=== PATIENT | female | born 1935 | race Caucasian/White ===

== ENCOUNTER 2020-05-18 12:54 | Outpatient (REF) | payer MEDICARE, MEDICAID, SELFPAY ==
--- NOTE | 2020-05-18 13:01 | MM_ITS ---
EXAMINATION: BONE DENSITOMETRY CLINICAL INDICATION: Post menopausal. COMPARISON: None (current study represents initial baseline exam). TECHNIQUE: Using a [employer] DXA System (software version: 13.1) manufactured by [employer], dual-energy x-ray absorptiometry was performed of the lumbar spine and left hip. The images are of good technical quality. Summary results are attached. FINDINGS: AP SPINE L1-L2 (excluding L3 and L4): The data of L1-L4 has been changed to exclude the L3 and L4 vertebral bodies, because levocurvature and degenerative changes at these levels may cause overestimation of lumbar spine density. BMD 0.822 g/cm2, Z-score -0.4, T-score -2.9, osteoporosis. LEFT FEMUR, NECK: BMD 0.630 g/cm2, Z-score -0.2, T-score -2.9, osteoporosis. LEFT FEMUR, TOTAL: BMD 0.655 g/cm2, Z-score -0.2, T-score -2.8, osteoporosis. IDENTIFIED RISK FACTORS: History of adult fracture. Height loss. Low body weight. Secondary osteoporosis (early menopause). HISTORY OF FRACTURE: Humerus. MEDICATIONS: None listed. MM/XR DEXA axial skeleton IMPRESSION: 1. DIAGNOSIS: Osteoporosis based on the lowest T-score value of -2.9 in the lumbar spine and femoral neck applying World Health Organization criteria. 2. 10-YEAR FRACTURE RISK PREDICTION, FRAX: Major osteoporotic fracture (clinical spine, forearm, hip or shoulder) 29.3%. Hip fracture 11.3%. 3. Treatment Recommendations: NOF guidelines recommend consideration for treatment in postmenopausal women and men age 50 and older presenting with the following: -A hip or vertebral (clinical or morphometric) fracture. -T-score less than or equal to -2.5 at the femoral neck or spine after appropriate evaluation to exclude secondary causes. -Low bone mass at the hip or spine and a 10-year fracture probability by FRAX of greater than or equal to 3% for hip fracture or greater than or equal to 20% for major osteoporotic fracture based on the [place] adapted WHO algorithm. 4. Other Recommendations: All treatment decisions require clinical judgment and consideration of individual patient factors, including patient preferences, comorbidities, previous drug use, risk factors not captured in the FRAX model (e.g. frailty, falls, vitamin D deficiency, increased bone turnover, interval significant decline in bone density) and possible under or overestimation of fracture risk by FRAX. Additional medical evaluation for secondary cause of low bone mineral density may be appropriate. FUTURE SCAN RECOMMENDATION: People with diagnosed cases of osteoporosis or at high risk for fracture should have regular bone mineral density tests. For patients eligible for Medicare, routine testing is allowed once every 2 years. The testing frequency can be increased to one year for patients who have rapidly progressing disease, those who are receiving or discontinuing medical therapy to restore bone mass, or have additional risk factors.
--- NOTE | 2020-05-18 13:01 | MM_ITS ---
EXAMINATION: MM SCREENING DIGITAL BREAST TOMOSYNTHESIS, BILATERAL CLINICAL INFORMATION: Screening. Asymptomatic. The lifetime risk of breast cancer based on the Tyrer-Cuzick Model is 1%. COMPARISON: Mammography: 11/01/2016, 09/25/2015, 03/28/2019, 08/31/2014, 08/24/2014 TECHNIQUE: Digital breast tomosynthesis is performed in both the craniocaudal and mediolateral oblique views along with computer-aided detection (CAD). Synthesized 2D images are generated from the tomosynthesis. Additional left MLO view is provided. FINDINGS: There are scattered areas of fibroglandular density (ACR BI-RADS breast composition Category b). There are no significant masses, abnormal calcifications, or other abnormalities. No developing density. No significant changes. MM/MM tomosynthesis screening BI IMPRESSION: No mammographic evidence of malignancy. ASSESSMENT: BI-RADS 1: Negative RECOMMENDATION: Routine annual mammography screening. This patient's information was entered into a reminder system with a target due date for their next mammogram.
== END 2020-05-18 12:55 | disposition home or self-care (01) ==
LOC: HO.MAMMO 12:54
PROVIDERS: PCP Internal Medicine; Visit Provider Internal Medicine
DX: N95.9 Unspecified menopausal and perimenopausal disorder (principal); Z12.31 Encounter for screening mammogram for malignant neoplasm of breast
CPT/HCPCS: 77063; 77067; 77080

== ENCOUNTER 2020-06-01 08:38 | Outpatient (REF) | payer MEDICARE, MEDICAID, SELFPAY ==
[2020-06-01 10:45] LABS: Vitamin D 25-OH Total 13.9 ng/mL (>30)
== END 2020-06-01 08:39 | disposition home or self-care (01) ==
LOC: HO.LAB 08:38
PROVIDERS: Visit Provider Internal Medicine
DX: E55.9 Vitamin D deficiency, unspecified (principal)
CPT/HCPCS: 82306

== ENCOUNTER → 2020-06-07 13:39 | Outpatient (BNVA) | payer MEDICARE, MEDICAID, SELFPAY | PROVIDERS: Visit Provider Student in an Organized Health Care Education/Training Program | DX: M19.042 Primary osteoarthritis, left hand (principal) | CPT/HCPCS: 20600; 20605; 99211 ==

== ENCOUNTER 2020-06-21 09:22 | Outpatient (REF) | payer MEDICARE, MEDICAID, SELFPAY ==
[2020-06-21 10:10] LABS: Hematocrit 35.4 % (37-47); Hemoglobin 11.1 g/dl (12.0-16.0); Mean Corpuscular HGB Conc 31.4 g/dl (31.0-35.0); Mean Corpuscular Hemoglobin 27.1 pg (27.0-33.0); Mean Corpuscular Volume 86.3 fL (80-98); Mean Platelet Volume 10.4 fL (9.4-12.3); Platelet Count 247 X10*3/uL (160-400); Red Cell Distribution Width 13.8 % (11.0-16.0); White Blood Count 7.4 X10*3/uL (4.8-10.8)
[2020-06-21 10:20] LABS: Anion Gap 10 (12-20); Blood Urea Nitrogen 18 mg/dL (9-16); Calcium 8.5 mg/dL (8.4-10.2); Carbon Dioxide 24 mmol/L (22-29); Chloride 110 mmol/L (96-108); Estimated Glomerular Filt Rate > 60; Glucose Random 126 mg/dL (60-115); Potassium 4.5 mmol/l (3.3-5.1); Sodium 139 mmol/L (135-145)
== END 2020-06-21 09:23 | disposition home or self-care (01) ==
LOC: HO.LAB 09:22
PROVIDERS: Visit Provider Internal Medicine
DX: R60.0 Localized edema (principal)
CPT/HCPCS: 36415; 80048; 85027

== ENCOUNTER → 2020-10-06 13:14 | Outpatient (BNVA) | payer MEDICARE, MEDICAID, SELFPAY | PROVIDERS: PCP Internal Medicine; Visit Provider Student in an Organized Health Care Education/Training Program | DX: M19.042 Primary osteoarthritis, left hand (principal) | CPT/HCPCS: 20600; 99212 ==

== ENCOUNTER → 2021-02-01 14:46 | Outpatient (BNVA) | payer MEDICARE, MEDICAID, SELFPAY | PROVIDERS: PCP Internal Medicine; Visit Provider Student in an Organized Health Care Education/Training Program | DX: M19.042 Primary osteoarthritis, left hand (principal) | CPT/HCPCS: 20600; 99212 ==

== ENCOUNTER 2021-02-05 08:07 | Outpatient (REF) | payer MEDICARE, MEDICAID, SELFPAY ==
[2021-02-05 09:44] LABS: MANUAL DIFF FLAG NO
[2021-02-05 09:56] LABS: Basophils Percent Auto 0.2 % (0-2); Eosinophils Absolute Auto 0.2 X10*3/uL (0.0-0.4); Eosinophils Percent Auto 2.1 % (0-4); Hematocrit 32.5 % (37-47); Hemoglobin 10.8 g/dl (12.0-16.0); Imm Gran Abs Auto 0.06 X10*3/uL (0.00-0.03); Imm Gran Pct Auto 0.6 % (0.0-0.4); Lymphocytes Absolute Auto 1.7 X10*3/uL (1.2-4.9); Lymphocytes Percent Auto 16.7 % (20-40); Mean Corpuscular HGB Conc 33.2 g/dl (31.0-35.0); Mean Corpuscular Hemoglobin 28.2 pg (27.0-33.0); Mean Corpuscular Volume 84.9 fL (80-98); Mean Platelet Volume 10.1 fL (9.4-12.3); Monocytes Absolute Auto 0.9 X10*3/uL (0.1-1.2); Monocytes Percent Auto 8.6 % (2-11); Neutrophils Absolute Auto 7.5 X10*3/uL (2.0-8.3); Neutrophils Percent Auto 71.8 % (45-73); Platelet Count 251 X10*3/uL (160-400); Red Blood Count 3.83 X10*6/uL (4.20-5.50); Red Cell Distribution Width 15.2 % (11.0-16.0); White Blood Count 10.4 X10*3/uL (4.8-10.8)
[2021-02-05 10:09] LABS: Anion Gap 12 (12-20); Blood Urea Nitrogen 20 mg/dL (9-16); Carbon Dioxide 19 mmol/L (22-29); Chloride 106 mmol/L (96-108); Cholesterol 137 mg/dL; Estimated Glomerular Filt Rate > 60; Glucose Fasting 101 mg/dL (60-99); HDL Cholesterol 53 mg/dL; LDL Cholesterol Calculated 72 mg/dl; Potassium 4.7 mmol/L (3.3-5.1); Sodium 132 mmol/L (135-145); Triglycerides 63 mg/dL
== END 2021-02-05 08:08 | disposition home or self-care (01) ==
LOC: HO.LAB 08:07
PROVIDERS: PCP Internal Medicine; Visit Provider Internal Medicine
DX: E55.9 Vitamin D deficiency, unspecified (principal); R53.83 Other fatigue; E78.00 Pure hypercholesterolemia, unspecified
CPT/HCPCS: 36415; 80051; 80061; 82306; 82565; 82947; 84520; 85025

== ENCOUNTER 2021-05-10 08:14 | Outpatient (REF) | payer MEDICARE, MEDICAID, SELFPAY ==
[2021-05-10 08:35] LABS: MANUAL DIFF FLAG NO
[2021-05-10 09:14] LABS: Basophils Percent Auto 0.5 % (0-2); Eosinophils Absolute Auto 0.3 X10*3/uL (0.0-0.4); Eosinophils Percent Auto 3.9 % (0-4); Hematocrit 32.6 % (37.0-47.0); Hemoglobin 10.5 g/dl (12.0-16.0); Imm Gran Abs Auto 0.02 X10*3/uL (0.00-0.03); Imm Gran Pct Auto 0.3 % (0.0-0.4); Lymphocytes Absolute Auto 1.6 X10*3/uL (1.2-4.9); Mean Corpuscular HGB Conc 32.2 g/dl (31.0-35.0); Mean Corpuscular Hemoglobin 28.9 pg (27.0-33.0); Mean Corpuscular Volume 89.8 fL (80.0-98.0); Mean Platelet Volume 9.9 fL (9.4-12.3); Monocytes Absolute Auto 0.7 X10*3/uL (0.1-1.2); Monocytes Percent Auto 9.5 % (2-11); Neutrophils Absolute Auto 5.1 x10*3/uL (2.0-8.3); Neutrophils Percent Auto 64.8 % (45-73); Platelet Count 288 X10*3/uL (160-400); Red Blood Count 3.63 X10*6/uL (4.20-5.50); Red Cell Distribution Width 14.6 % (11.0-16.0); White Blood Count 7.8 X10*3/uL (4.8-10.8)
[2021-05-10 09:40] LABS: Anion Gap 9 (12-20); Blood Urea Nitrogen 14 mg/dL (9-16); Calcium 8.9 mg/dL (8.4-10.2); Carbon Dioxide 26 mmol/L (22-29); Chloride 108 mmol/L (96-108); Estimated Glomerular Filt Rate > 60; Glucose Random 103 mg/dL (60-115); Potassium 4.8 mmol/L (3.3-5.1); Sodium 138 mmol/L (135-145)
== END 2021-05-10 08:15 | disposition home or self-care (01) ==
LOC: HO.LAB 08:14
PROVIDERS: PCP Internal Medicine; Visit Provider Internal Medicine
DX: R53.83 Other fatigue (principal); D64.9 Anemia, unspecified; I10 Essential (primary) hypertension
CPT/HCPCS: 36415; 80048; 85025

== ENCOUNTER → 2021-06-04 09:51 | Outpatient (BNVA) | payer MEDICARE, MEDICAID, SELFPAY | PROVIDERS: PCP Internal Medicine; Visit Provider Orthopaedic Surgery | DX: M18.12 Unilateral primary osteoarthritis of first carpometacarpal joint, left hand (principal) | CPT/HCPCS: 20600; 99202; J1040 ==

== ENCOUNTER 2021-06-18 13:33 | Outpatient (REF) | payer MEDICARE, MEDICAID, SELFPAY ==
--- NOTE | ~2021-06-18 | MM_ITS ---
EXAMINATION: MM SCREENING DIGITAL BREAST TOMOSYNTHESIS, BILATERAL CLINICAL INFORMATION: Screening. Asymptomatic. COMPARISON: Mammography: 05/18/2020, 11/01/2016, 09/25/2015 TECHNIQUE: Digital breast tomosynthesis is performed in both the craniocaudal and mediolateral oblique views along with computer-aided detection (CAD). Synthesized 2D images are generated from the tomosynthesis. FINDINGS: There are scattered areas of fibroglandular density (ACR BI-RADS breast composition Category b). There are no significant masses, abnormal calcifications, or other abnormalities. Parenchymal pattern is similar to prior exams. MM/MM tomosynthesis screening BI IMPRESSION: No mammographic evidence of malignancy. ASSESSMENT: BI-RADS 1: Negative RECOMMENDATION: Routine annual mammography screening. This patient's information was entered into a reminder system with a target due date for their next mammogram.
== END 2021-06-18 13:34 | disposition home or self-care (01) ==
LOC: HO.MAMMO 13:33
PROVIDERS: PCP Internal Medicine; Visit Provider Internal Medicine
DX: Z12.31 Encounter for screening mammogram for malignant neoplasm of breast (principal)
CPT/HCPCS: 77063; 77067

== ENCOUNTER 2021-06-20 08:23 | Outpatient (REF) | payer MEDICARE, MEDICAID, SELFPAY ==
[2021-06-20 09:16] LABS: COVID-19 Test Negative (Negative); IDNOW Serial# 16C4AD1C
== END 2021-06-20 08:24 | disposition home or self-care (01) ==
LOC: HO.LAB 08:23
PROVIDERS: PCP Internal Medicine; Visit Provider Internal Medicine
DX: Z20.822 Contact with and (suspected) exposure to COVID-19 (principal)
CPT/HCPCS: 36415; 87635; C9803

== ENCOUNTER 2021-07-12 08:00 | Outpatient (REF) | payer MEDICARE, MEDICAID, SELFPAY ==
[2021-07-12 08:16] LABS: MANUAL DIFF FLAG NO
[2021-07-12 08:42] LABS: Basophils Percent Auto 0.6 % (0-2); Eosinophils Absolute Auto 0.2 X10*3/uL (0.0-0.4); Eosinophils Percent Auto 3.2 % (0-4); Hematocrit 33.2 % (37.0-47.0); Hemoglobin 10.5 g/dl (12.0-16.0); Imm Gran Abs Auto 0.02 X10*3/uL (0.00-0.03); Imm Gran Pct Auto 0.3 % (0.0-0.4); Lymphocytes Absolute Auto 1.7 X10*3/uL (1.2-4.9); Lymphocytes Percent Auto 25.2 % (20-40); Mean Corpuscular HGB Conc 31.6 g/dl (31.0-35.0); Mean Corpuscular Volume 88.5 fL (80.0-98.0); Mean Platelet Volume 10.1 fL (9.4-12.3); Monocytes Absolute Auto 0.8 X10*3/uL (0.1-1.2); Neutrophils Absolute Auto 3.9 x10*3/uL (2.0-8.3); Neutrophils Percent Auto 58.7 % (45-73); Platelet Count 294 X10*3/uL (160-400); Red Blood Count 3.75 X10*6/uL (4.20-5.50); Red Cell Distribution Width 14.2 % (11.0-16.0); White Blood Count 6.6 X10*3/uL (4.8-10.8)
[2021-07-12 09:13] LABS: Anion Gap 10 (12-20); Blood Urea Nitrogen 22 mg/dL (9-16); Calcium 9.2 mg/dL (8.4-10.2); Carbon Dioxide 24 mmol/L (22-29); Chloride 111 mmol/L (96-108); Estimated Glomerular Filt Rate > 60; Glucose Random 97 mg/dL (60-115); Potassium 4.8 mmol/L (3.3-5.1); Sodium 140 mmol/L (135-145)
== END 2021-07-12 08:01 | disposition home or self-care (01) ==
LOC: HO.LAB 08:00
PROVIDERS: PCP Internal Medicine; Visit Provider Internal Medicine
DX: R53.83 Other fatigue (principal)
CPT/HCPCS: 36415; 80048; 85025

== ENCOUNTER 2021-10-12 08:07 | Outpatient (REF) | payer MEDICARE, MEDICAID, SELFPAY ==
[2021-10-12 08:36] LABS: MANUAL DIFF FLAG NO
[2021-10-12 08:56] LABS: Basophils Percent Auto 0.4 % (0-2); Eosinophils Absolute Auto 0.2 X10*3/uL (0.0-0.4); Eosinophils Percent Auto 2.4 % (0-4); Hematocrit 33.8 % (37.0-47.0); Hemoglobin 10.6 g/dl (12.0-16.0); Imm Gran Abs Auto 0.03 X10*3/uL (0.00-0.03); Imm Gran Pct Auto 0.3 % (0.0-0.4); Lymphocytes Absolute Auto 1.9 X10*3/uL (1.2-4.9); Lymphocytes Percent Auto 18.5 % (20-40); Mean Corpuscular HGB Conc 31.4 g/dl (31.0-35.0); Mean Corpuscular Hemoglobin 27.6 pg (27.0-33.0); Mean Platelet Volume 9.5 fL (9.4-12.3); Monocytes Absolute Auto 0.8 X10*3/uL (0.1-1.2); Monocytes Percent Auto 7.6 % (2-11); Neutrophils Absolute Auto 7.1 x10*3/uL (2.0-8.3); Neutrophils Percent Auto 70.8 % (45-73); Platelet Count 257 X10*3/uL (160-400); Red Blood Count 3.84 X10*6/uL (4.20-5.50); Red Cell Distribution Width 15.2 % (11.0-16.0)
[2021-10-12 09:25] LABS: Anion Gap 12 (12-20); Blood Urea Nitrogen 15 mg/dL (9-16); Carbon Dioxide 20 mmol/L (22-29); Chloride 107 mmol/L (96-108); Estimated Glomerular Filt Rate > 60; Glucose Random 103 mg/dL (60-115); Potassium 5.2 mmol/L (3.3-5.1); Sodium 134 mmol/L (135-145)
== END 2021-10-12 08:08 | disposition home or self-care (01) ==
LOC: HO.LAB 08:07
PROVIDERS: PCP Internal Medicine; Visit Provider Internal Medicine
DX: R53.83 Other fatigue (principal); N18.9 Chronic kidney disease, unspecified; E78.5 Hyperlipidemia, unspecified
CPT/HCPCS: 36415; 80048; 85025

== ENCOUNTER → 2021-11-07 12:42 | Outpatient (BNVA) | payer MEDICARE, MEDICAID, SELFPAY | PROVIDERS: PCP Internal Medicine; Visit Provider Physician Assistant | DX: M18.12 Unilateral primary osteoarthritis of first carpometacarpal joint, left hand (principal) | CPT/HCPCS: 20600; 99212; J1020 ==

== ENCOUNTER 2022-02-11 08:08 | Outpatient (REF) | payer MEDICARE, MEDICAID, SELFPAY ==
[2022-02-11 08:21] LABS: MANUAL DIFF FLAG NO
[2022-02-11 08:35] LABS: Basophils Absolute Auto 0.1 X10*3/uL (0.0-0.2); Eosinophils Absolute Auto 0.3 X10*3/uL (0.0-0.4); Eosinophils Percent Auto 4.3 % (0-4); Hematocrit 33.1 % (37.0-47.0); Hemoglobin 10.7 g/dl (12.0-16.0); Imm Gran Abs Auto 0.02 X10*3/uL (0.00-0.03); Imm Gran Pct Auto 0.3 % (0.0-0.4); Lymphocytes Absolute Auto 1.7 X10*3/uL (1.2-4.9); Lymphocytes Percent Auto 23.8 % (20-40); Mean Corpuscular HGB Conc 32.3 g/dl (31.0-35.0); Mean Corpuscular Hemoglobin 28.1 pg (27.0-33.0); Mean Corpuscular Volume 86.9 fL (80.0-98.0); Mean Platelet Volume 9.6 fL (9.4-12.3); Monocytes Absolute Auto 0.7 X10*3/uL (0.1-1.2); Monocytes Percent Auto 9.1 % (2-11); Neutrophils Absolute Auto 4.5 x10*3/uL (2.0-8.3); Neutrophils Percent Auto 61.5 % (45-73); Platelet Count 268 X10*3/uL (160-400); Red Blood Count 3.81 X10*6/uL (4.20-5.50); Red Cell Distribution Width 14.7 % (11.0-16.0); White Blood Count 7.2 X10*3/uL (4.8-10.8)
[2022-02-11 09:06] LABS: Alanine Aminotransferase 15 U/L (0-31); Alkaline Phosphatase 70 U/L (39-117); Anion Gap 13 (12-20); Aspartate Amino Transferase 15 U/L (5-31); Bilirubin Total 0.5 mg/dL (0.0-1.0); Blood Urea Nitrogen 18 mg/dL (9-16); Calcium 8.8 mg/dL (8.4-10.2); Carbon Dioxide 22 mmol/L (22-29); Chloride 106 mmol/L (96-108); Cholesterol 128 mg/dL; Estimated Glomerular Filt Rate > 60; Glucose Fasting 108 mg/dL (60-99); HDL Cholesterol 51 mg/dL; LDL Cholesterol Calculated 65 mg/dl; Potassium 5.2 mmol/L (3.3-5.1); Sodium 136 mmol/L (135-145); Total Protein 6.1 g/dL (6.5-8.0); Triglycerides 61 mg/dL
[2022-02-14 15:10] LABS: Iron 62 mcg/dL (30-160); Percent Iron Saturation 17 % (15-50); Total Iron Binding Capacity 360 mcg/dL (228-428); Unsaturated Iron Binding 298 ug/dL
== END 2022-02-11 08:09 | disposition home or self-care (01) ==
LOC: HO.LAB 08:08
PROVIDERS: PCP Internal Medicine; Visit Provider Internal Medicine
DX: D64.9 Anemia, unspecified (principal); R53.83 Other fatigue
CPT/HCPCS: 36415; 80053; 80061; 83540; 85025

== ENCOUNTER → 2022-02-13 12:34 | Outpatient (BNVA) | payer MEDICARE, MEDICAID, SELFPAY | PROVIDERS: PCP Internal Medicine; Visit Provider Physician Assistant | DX: M18.12 Unilateral primary osteoarthritis of first carpometacarpal joint, left hand (principal) | CPT/HCPCS: 20600; 99212; J1020 ==

== ENCOUNTER → 2022-06-17 13:22 | Outpatient (BNVA) | payer MEDICARE, MEDICAID, SELFPAY | PROVIDERS: PCP Internal Medicine; Visit Provider Physician Assistant | DX: M18.12 Unilateral primary osteoarthritis of first carpometacarpal joint, left hand (principal) | CPT/HCPCS: 20600; 99212; J1020 ==

== ENCOUNTER 2022-10-05 21:06 | Emergency (ER) | payer MEDICARE, MEDICAID, SELFPAY ==
[2022-10-05] VITALS (10 sets, daily range): BP systolic 83–117; BP diastolic 35–67; PULSE 50–64; RESP 12–14; TEMP 36.3–37; O2SAT 97–99; BMI 18.8
--- NOTE | 2022-10-05 | ECG_ITS ---
Test Reason : SYNCOPE Blood Pressure : / mmHG Vent. Rate : 049 BPM Atrial Rate : 049 BPM P-R Int : 188 ms QRS Dur : 094 ms QT Int : 492 ms P-R-T Axes : 066 072 070 degrees QTc Int : 444 ms Sinus bradycardia Otherwise normal ECG No previous ECGs available Referred By: Generic ED Physician Electronically Signed By:Dimitrios Matamoros
--- NOTE | ~2022-10-05 | XR_ITS ---
EXAMINATION: XR CHEST CLINICAL INFORMATION: Cough COMPARISON: None available. TECHNIQUE: Frontal view of the chest was obtained. FINDINGS: Normal symmetric lung volumes. No parenchymal consolidation. Bibasilar subsegmental atelectasis. No pleural effusion. No pneumothorax. Cardiomediastinal silhouette and pulmonary vascularity are within normal limits. No acute osseous abnormalities. Median sternotomy. XR/XR chest 1V IMPRESSION: No focal consolidation.
[2022-10-05] MEDS: 0.9 % Sodium Chloride 1,000 ML 999 ML IV (21:52)
[2022-10-05 22:33] LABS: Basophils Percent Auto 0.3 % (0-2); Eosinophils Absolute Auto 0.1 X10*3/uL (0.0-0.4); Eosinophils Percent Auto 1.5 % (0-4); Hematocrit 27.3 % (37.0-47.0); Hemoglobin 8.8 g/dl (12.0-16.0); Imm Gran Abs Auto 0.03 X10*3/uL (0.00-0.03); Imm Gran Pct Auto 0.3 % (0.0-0.4); Lymphocytes Absolute Auto 1.5 X10*3/uL (1.2-4.9); Lymphocytes Percent Auto 16.5 % (20-40); MANUAL DIFF FLAG NO; Mean Corpuscular HGB Conc 32.2 g/dl (31.0-35.0); Mean Corpuscular Volume 86.9 fL (80.0-98.0); Mean Platelet Volume 9.7 fL (9.4-12.3); Monocytes Absolute Auto 0.8 X10*3/uL (0.1-1.2); Monocytes Percent Auto 8.2 % (2-11); Neutrophils Absolute Auto 6.7 x10*3/uL (2.0-8.3); Neutrophils Percent Auto 73.2 % (45-73); Platelet Count 232 X10*3/uL (160-400); Red Blood Count 3.14 X10*6/uL (4.20-5.50); White Blood Count 9.2 X10*3/uL (4.8-10.8)
--- NOTE | 2022-10-05 22:33 | ED_ITS ---
HPI - Syncope General Chief Complaint: Syncope Stated Complaint: SYNCOPE Time Seen by Provider: 10/05/22 21:42 Source: patient and other Mode of arrival: EMS History of Present Illness HPI narrative: 87-year-old female who was at [employer] singing, and is brought in by EMS after she reports that she has had some diarrhea this morning with poor oral intake and then while at [employer] noticed that her hands were trembling, she was in a standing position at this time, she denies any cool/clammy feeling does report a flushing sensation as well as visual changes but denies any shortness of breath/palpitations. Patient denies any head strike and denies any anticoagulation. Related Data Home Medications Medication Instructions Recorded Confirmed acetaminophen 500 mg tablet 500 mg PO Q6H PRN 06/07/20 06/07/20 (Tylenol Extra Strength) aspirin 81 mg tablet,delayed 81 mg PO DAILY 06/07/20 06/07/20 release (Adult Low Dose Aspirin) atorvastatin 80 mg tablet 80 mg PO DAILY 06/07/20 06/07/20 carvedilol 12.5 mg tablet 12.5 mg PO BID 06/07/20 06/07/20 cholecalciferol (vitamin D3) 1,250 1,250 mcg PO QWEEK 06/07/20 06/07/20 mcg (50,000 unit) capsule gabapentin 300 mg capsule 300 mg PO TID 06/07/20 06/07/20 ibandronate 150 mg tablet mg PO .once a month 06/07/20 06/07/20 lisinopril 20 mg tablet 20 mg PO DAILY 06/07/20 06/07/20 omeprazole 20 mg capsule,delayed 20 mg PO DAILY 06/07/20 06/07/20 release oxybutynin chloride 10 mg 10 mg PO DAILY 06/07/20 06/07/20 tablet,extended release 24 hr amlodipine 10 mg tablet 10 mg PO DAILY 11/07/21 gabapentin 100 mg capsule 100 mg PO BID 11/07/21 Allergies Allergy/AdvReac Type Severity Reaction Status Date / Time cephalexin Allergy Intermediate rash Verified 10/05/22 21:40 alendronate sodium AdvReac Intermediate DIARRHEA Verified 10/05/22 21:40 [From Fosamax] From Augmentin Allergy Severe FACE, LIPS Uncoded 06/17/22 13:30 SWELL Review of Systems Review of Systems: Pertinent positives and negatives as stated in [facility] Past Medical History Source: nursing notes reviewed Medical History Primary osteoarthritis, left hand Social History Social History Alcohol intake: current Alcohol intake frequency: holidays/special occasions only Alcohol type: wine Patient Tobacco Use Status: Never used Tobacco Advance Directives: No Advance Directives Information Provided: No Physical Exam Vital Signs: Vital Signs: Last Vital Signs Temp 98.6 F 10/05/22 23:24 Pulse 65 10/06/22 01:35 Resp 12 10/05/22 23:24 BP 112/46 L 10/06/22 01:35 Pulse Ox 98 10/05/22 23:24 O2 Del Method Room Air 10/05/22 23:24 BMI result Body Mass Index 18.8 VITAL SIGNS: Reviewed. GENERAL: Well developed, well nourished, in no acute distress. HEAD: Normocephalic/atraumatic EYES: PERRLA, EOMI EARS: Ext canals without abnormality NOSE: Nares patent bilateral OROPHARYNX: no oral lesions noted, posterior pharynx clear, dry mucosa NECK: Supple, no adenopathy LUNGS: Normal breath sounds. No adventitious sounds or accessory muscle use. SpO2<99> CARDIOVASCULAR: Regular rate and rhythm without noted murmurs, no JVD or lower extremity edema. ABDOMEN: Soft, non-tender, non-distended with bowel sounds. MUSCULOSKELETAL: No tenderness, deformities, or effusions noted on gross inspection. EXTREMITIES: No cyanosis, clubbing or edema. SKIN: Inspection of the skin reveals no rashes NEUROLOGIC: Alert and oriented x 4. Strength and sensation to light touch were grossly intact x 4, no facial asymmetry (patient states that she has right eye droop at baseline), no pronator drift, cranial nerves 2-12 are grossly intact. Medications Administered Discontinued Medications Generic Name Dose Route Start Last Admin Trade Name Freq PRN Reason Stop Dose Admin Sodium Chloride 1,000 mls @ 999 mls/hr 10/05/22 21:45 10/05/22 23:10 Ns IV 10/05/22 22:45 Infused .Q1H1M AMAURY Infusion Medical Decision Making Medical Decision Making [facility] Narrative: 2238: 87-year-old female with history and clinical presentation consistent with suspected vasovagal syncope secondary to hypovolemia but will rule out any evidence of infection, anemia, electrolyte abnormalities or arrhythmias. 2145: Orthostatics positive. 2345: Orthostatics negative Review of investigations and my interpretation is that patient likely had a combination of hypovolemia with medications that prevent mobilizing cardiac output. I did discuss the case with the inpatient hospitalist and we will test orthostatics once more and ambulate the patient at bedside. If patient's orthostatics are positive she will be admitted for obs. On repeat orthostatics they are negative and patient ambulated around the emergency room with a steady gait and states she is feeling much better. She is otherwise discharged home in stable condition with instructions to follow-up with primary care provider. Differential Diagnosis Please see the discussion above Lab Data Please see the discussion above 10/05/22 22:24 10/05/22 22:24 Labs: Lab Results 10/05/22 10/05/22 10/05/22 Range/Units 22:24 22:24 22:24 WBC 9.2 (4.8-10.8) X10*3/uL RBC 3.14 L (4.20-5.50) X10*6/uL Hgb 8.8 L (12.0-16.0) g/dl Hct 27.3 L (37.0-47.0) % MCV 86.9 (80.0-98.0) fL MCH 28.0 (27.0-33.0) pg MCHC 32.2 (31.0-35.0) g/dl RDW 16.0 (11.0-16.0) % Plt Count 232 (160-400) X10*3/uL MPV 9.7 (9.4-12.3) fL Immature Gran % (Auto) 0.3 (0.0-0.4) % Neut % (Auto) 73.2 H (45-73) % Lymph % (Auto) 16.5 L (20-40) % Mckinley % (Auto) 8.2 (2-11) % Eos % (Auto) 1.5 (0-4) % Baso % (Auto) 0.3 (0-2) % Lymph # (Auto) 1.5 (1.2-4.9) X10*3/uL Mckinley # (Auto) 0.8 (0.1-1.2) X10*3/uL Eos # (Auto) 0.1 (0.0-0.4) X10*3/uL Baso # (Auto) 0.0 (0.0-0.2) X10*3/uL Abs Immat Gran (auto) 0.03 (0.00-0.03) X10*3/uL Absolute Neuts (auto) 6.7 (2.0-8.3) x10*3/uL Absolute Nucleated RBC 0.000 (0.0-0.012) X10*3/uL Nucleated RBC % (auto) 0.0 (0.0-0.2) /100WBC Sodium 134 L (135-145) mmol/L Potassium 4.5 (3.3-5.1) mmol/L Chloride 111 H (96-108) mmol/L Carbon Dioxide 16 L (22-29) mmol/L Anion Gap 12 (12-20) BUN 30 H (9-16) mg/dL Creatinine 1.03 (0.5-1.4) mg/dL Estim Creat Clear Calc 25.6 Estimated GFR 51 Random Glucose 101 (60-115) mg/dL Calcium 7.6 L D (8.4-10.2) mg/dL Total Bilirubin 0.3 (0.0-1.0) mg/dL AST 12 (5-31) U/L ALT 12 (0-31) U/L Alkaline Phosphatase 69 (39-117) U/L Troponin I High Sens (<3.5-17.0) ng/L Total Protein 4.5 L (6.5-8.0) g/dL Albumin 3.0 L (3.5-5.0) g/dL COVID-19 ([facility]) Negative (Negative) COVID-19 Clin Com See Note 10/05/22 Range/Units 23:20 WBC (4.8-10.8) X10*3/uL RBC (4.20-5.50) X10*6/uL Hgb (12.0-16.0) g/dl Hct (37.0-47.0) % MCV (80.0-98.0) fL MCH (27.0-33.0) pg MCHC (31.0-35.0) g/dl RDW (11.0-16.0) % Plt Count (160-400) X10*3/uL MPV (9.4-12.3) fL Immature Gran % (Auto) (0.0-0.4) % Neut % (Auto) (45-73) % Lymph % (Auto) (20-40) % Mckinley % (Auto) (2-11) % Eos % (Auto) (0-4) % Baso % (Auto) (0-2) % Lymph # (Auto) (1.2-4.9) X10*3/uL Mckinley # (Auto) (0.1-1.2) X10*3/uL Eos # (Auto) (0.0-0.4) X10*3/uL Baso # (Auto) (0.0-0.2) X10*3/uL Abs Immat Gran (auto) (0.00-0.03) X10*3/uL Absolute Neuts (auto) (2.0-8.3) x10*3/uL Absolute Nucleated RBC (0.0-0.012) X10*3/uL Nucleated RBC % (auto) (0.0-0.2) /100WBC Sodium (135-145) mmol/L Potassium (3.3-5.1) mmol/L Chloride (96-108) mmol/L Carbon Dioxide (22-29) mmol/L Anion Gap (12-20) BUN (9-16) mg/dL Creatinine (0.5-1.4) mg/dL Estim Creat Clear Calc Estimated GFR Random Glucose (60-115) mg/dL Calcium (8.4-10.2) mg/dL Total Bilirubin (0.0-1.0) mg/dL AST (5-31) U/L ALT (0-31) U/L Alkaline Phosphatase (39-117) U/L Troponin I High Sens < 2.7 (<3.5-17.0) ng/L Total Protein (6.5-8.0) g/dL Albumin (3.5-5.0) g/dL COVID-19 ([facility]) (Negative) COVID-19 Clin Com Independent Interpretation I performed an independent interpretation of an: EKG Interpretation: Sinus bradycardia, HR -49, UT/QRS/QTC is within normal limits. Radiology Impression Radiologist Impression: My interpretation is in agreement with radiology's impression of the imaging studies. External Record Review External record reviewed: Outpatient record and Prior outpatient labs Discharge Plan Discharge Clinical Impression: Syncope, vasovagal, Hypovolemia Patient Disposition: Home, Self-Care Instructions: Syncope (ED) Additional Instructions: 1. Resume all home medications as prescribed. Please be especially attentive to drinking plenty of fluids for the next 24-48 hours. 2. Follow-up with primary care provider by calling the office on Friday morning and setting up an appointment for re-evaluation. Return to the ER for any worsening symptoms. Prescriptions: No Action gabapentin 300 mg capsule 300 mg PO TID lisinopril 20 mg tablet 20 mg PO DAILY omeprazole 20 mg capsule,delayed release(DR/EC) 20 mg PO DAILY oxybutynin chloride 10 mg tablet extended release 24hr 10 mg PO DAILY carvedilol 12.5 mg tablet 12.5 mg PO BID Rx Instructions: must administer with a meal/food aspirin [Adult Low Dose Aspirin] 81 mg tablet,delayed release (DR/EC) 81 mg PO DAILY acetaminophen [Tylenol Extra Strength] 500 mg tablet 500 mg PO Q6H PRN cholecalciferol (vitamin D3) 1,250 mcg (50,000 unit) capsule 1,250 mcg PO QWEEK ibandronate 150 mg tablet PO .once a month atorvastatin 80 mg tablet 80 mg PO DAILY gabapentin 100 mg capsule 100 mg PO BID amlodipine 10 mg tablet 10 mg PO DAILY Referrals: Andrew Henderson MD [Primary Care Provider] -
[2022-10-05 22:48] LABS: Alanine Aminotransferase 12 U/L (0-31); Alkaline Phosphatase 69 U/L (39-117); Anion Gap 12 (12-20); Aspartate Amino Transferase 12 U/L (5-31); Bilirubin Total 0.3 mg/dL (0.0-1.0); Blood Urea Nitrogen 30 mg/dL (9-16); Calcium 7.6 mg/dL (8.4-10.2); Carbon Dioxide 16 mmol/L (22-29); Chloride 111 mmol/L (96-108); Creatinine Clr Calc Pharmacy 25.6; Estimated Glomerular Filt Rate 51; Glucose Random 101 mg/dL (60-115); Potassium 4.5 mmol/L (3.3-5.1); Sodium 134 mmol/L (135-145); Total Protein 4.5 g/dL (6.5-8.0)
[2022-10-05 23:03] LABS: COVID-19 Test Negative (Negative); IDNOW Serial# 6674DD1D
[2022-10-06 00:09] LABS: Troponin-I High Sensitivity < 2.7 ng/L (<3.5-17.0)
[2022-10-06 01:33] VITALS: BP 99/46; PULSE 60
[2022-10-06 01:34] VITALS: BP 101/47; PULSE 62
[2022-10-06 01:35] VITALS: BP 112/46; PULSE 65
== END 2022-10-06 02:13 | disposition home or self-care (01) ==
PROVIDERS: Emergency Provider Student in an Organized Health Care Education/Training Program; PCP Internal Medicine
DX: R55 Syncope and collapse (principal); E86.1 Hypovolemia; Z20.822 Contact with and (suspected) exposure to COVID-19; Z79.82 Long term (current) use of aspirin; Z79.02 Long term (current) use of antithrombotics/antiplatelets; Z79.899 Other long term (current) drug therapy
CPT/HCPCS: 36415; 71045; 80053; 84484; 85025; 87635; 93005; 96360; 99284

== ENCOUNTER → 2022-10-16 12:49 | Outpatient (BNVA) | payer MEDICARE, MEDICAID, SELFPAY | PROVIDERS: PCP Internal Medicine; Visit Provider Physician Assistant | DX: M19.042 Primary osteoarthritis, left hand (principal) | CPT/HCPCS: 20600; 99212; J1020 ==

== ENCOUNTER 2022-11-15 07:50 | Outpatient (REF) | payer MEDICARE, MEDICAID, SELFPAY ==
[2022-11-15 08:13] LABS: MANUAL DIFF FLAG NO
[2022-11-15 08:30] LABS: Basophils Absolute Auto 0.1 X10*3/uL (0.0-0.2); Basophils Percent Auto 0.6 % (0-2); Eosinophils Absolute Auto 0.2 X10*3/uL (0.0-0.4); Eosinophils Percent Auto 2.7 % (0-4); Hematocrit 36.8 % (37.0-47.0); Imm Gran Abs Auto 0.03 X10*3/uL (0.00-0.03); Imm Gran Pct Auto 0.4 % (0.0-0.4); Lymphocytes Absolute Auto 1.7 X10*3/uL (1.2-4.9); Lymphocytes Percent Auto 21.3 % (20-40); Mean Corpuscular HGB Conc 32.6 g/dl (31.0-35.0); Mean Corpuscular Hemoglobin 28.5 pg (27.0-33.0); Mean Corpuscular Volume 87.4 fL (80.0-98.0); Mean Platelet Volume 9.7 fL (9.4-12.3); Monocytes Absolute Auto 0.7 X10*3/uL (0.1-1.2); Neutrophils Absolute Auto 5.4 x10*3/uL (2.0-8.3); Platelet Count 256 X10*3/uL (160-400); Red Blood Count 4.21 X10*6/uL (4.20-5.50); Red Cell Distribution Width 14.7 % (11.0-16.0); White Blood Count 8.1 X10*3/uL (4.8-10.8)
[2022-11-15 09:05] LABS: Iron 88 mcg/dL (30-160); Percent Iron Saturation 30 % (15-50); Total Iron Binding Capacity 295 mcg/dL (228-428); Unsaturated Iron Binding 207 ug/dL
[2022-11-15 09:24] LABS: Ferritin 24 ng/mL (10-250)
== END 2022-11-15 07:51 | disposition home or self-care (01) ==
LOC: HO.LAB 07:50
PROVIDERS: PCP Internal Medicine; Visit Provider Internal Medicine
DX: D64.9 Anemia, unspecified (principal); R53.83 Other fatigue
CPT/HCPCS: 36415; 82728; 83540; 85025

== ENCOUNTER 2023-01-30 07:59 | Outpatient (REF) | payer MEDICARE, MEDICAID, SELFPAY ==
[2023-01-30 08:33] LABS: MANUAL DIFF FLAG NO
[2023-01-30 08:59] LABS: Basophils Percent Auto 0.4 % (0-2); Eosinophils Absolute Auto 0.2 X10*3/uL (0.0-0.4); Eosinophils Percent Auto 1.6 % (0-4); Hematocrit 37.5 % (37.0-47.0); Hemoglobin 12.4 g/dl (12.0-16.0); Imm Gran Abs Auto 0.03 X10*3/uL (0.00-0.03); Imm Gran Pct Auto 0.3 % (0.0-0.4); Lymphocytes Absolute Auto 1.4 X10*3/uL (1.2-4.9); Lymphocytes Percent Auto 14.4 % (20-40); Mean Corpuscular HGB Conc 33.1 g/dl (31.0-35.0); Mean Corpuscular Hemoglobin 29.9 pg (27.0-33.0); Mean Corpuscular Volume 90.4 fL (80.0-98.0); Mean Platelet Volume 9.5 fL (9.4-12.3); Monocytes Absolute Auto 0.8 X10*3/uL (0.1-1.2); Monocytes Percent Auto 8.5 % (2-11); Neutrophils Absolute Auto 7.1 x10*3/uL (2.0-8.3); Neutrophils Percent Auto 74.8 % (45-73); Platelet Count 235 X10*3/uL (160-400); Red Blood Count 4.15 X10*6/uL (4.20-5.50); Red Cell Distribution Width 13.7 % (11.0-16.0); White Blood Count 9.4 X10*3/uL (4.8-10.8)
[2023-01-30 09:37] LABS: Alanine Aminotransferase 18 U/L (0-31); Albumin Level 3.9 g/dL (3.5-5.0); Alkaline Phosphatase 68 U/L (39-117); Anion Gap 14 (12-20); Aspartate Amino Transferase 16 U/L (5-31); Bilirubin Direct 0.2 mg/dL (0.0-0.5); Bilirubin Total 0.5 mg/dL (0.0-1.0); Blood Urea Nitrogen 12 mg/dL (9-16); Carbon Dioxide 21 mmol/L (22-29); Chloride 102 mmol/L (96-108); Cholesterol 135 mg/dL; Estimated Glomerular Filt Rate > 60; Glucose Fasting 93 mg/dL (60-99); HDL Cholesterol 61 mg/dL; LDL Cholesterol Calculated 61 mg/dl; Potassium 4.7 mmol/L (3.3-5.1); Sodium 132 mmol/L (135-145); Total Protein 6.2 g/dL (6.5-8.0); Triglycerides 69 mg/dL
[2023-01-30 09:58] LABS: Vitamin D 25-OH Total 63.9 ng/mL (>30)
== END 2023-01-30 08:00 | disposition home or self-care (01) ==
LOC: HO.LAB 07:59
PROVIDERS: PCP Internal Medicine; Visit Provider Internal Medicine
DX: R53.83 Other fatigue (principal); E78.5 Hyperlipidemia, unspecified
CPT/HCPCS: 36415; 80051; 80061; 80076; 82306; 82565; 82947; 84520; 85025

== ENCOUNTER 2023-05-19 12:15 | Outpatient (AMB) | payer MEDICARE, MEDICAID, SELFPAY ==
--- NOTE | 2023-05-19 12:26 | A.OFFVIS_ITS ---
Intake Intake Visit Reasons: OV-Left thumb CMC Inj 10/16/22 Intake Note: Rylee an 87 yr old female presents today for a follow up of left thumb, last injection 06/17/22. Patient reports her last injection lasted her a good time. She would like to repeat. Allergies cephalexin Allergy (Intermediate, Verified 05/19/23 12:37) rash alendronate sodium [From Fosamax] Adverse Reaction (Intermediate, Verified 05/19/23 12:37) DIARRHEA From Augmentin Allergy (Severe, Uncoded 10/16/22 12:59) FACE, LIPS SWELL HPI OV-Left thumb CMC Inj 10/16/22 HPI Details 87-year-old female who returns to the [facility] today for a follow-up of left thumb pain. She had her last injection on 10/16/22 which provided her good relief. She would like to repeat the injection. [facility] Medical History Primary osteoarthritis, left hand Alcohol intake: current Alcohol intake frequency: holidays/special occasions only Alcohol type: wine Patient Tobacco Use Status: Never used Tobacco Review of Systems Const All systems reviewed & are unremarkable except as noted in HPI and below Physical Exam Const General: cooperative and no acute distress Orientation/consciousness: patient oriented x3 Resp Effort & Inspection: normal respiratory effort and able to speak in complete sentences Cardio Peripheral pulses: Peripheral pulses 2+ throughout Neuro General: patient oriented x3 Extrem Other: Left thumb pain at the base of the thumb along the CMC joint. Pain with CMC grind. She is able to make a full fist and fully extend. NVI. Office Procedures Joint Injection/Drain Joint Injection/Drain Primary Site: left thumb Prep: site was prepped using aseptic technique, ethochloride spray was applied and injection warnings given Injected: 80 mg of, DepoMedrol, with 1 mL of, 1% plain lidocaine and in the joint Procedure: The patient tolerated the procedure well and there was some relief with the local anesthesia Coding 05245 - Small Joint Procedure code (CPT) selection complete Assessment & Plan Assessment & Plan (1) Arthritis of carpometacarpal (CMC) joint of left thumb: Code(s): M18.12 - Unilateral primary osteoarthritis of first carpometacarpal joint, left hand Plan We discussed options today which include steroid injection. They did consent to move forward with the left thumb injection, which was tolerated well. I recommended rest, ice and elevation and OTC anti-inflammatories PRN for discomfort. If symptoms persist or worsens over the next 6-8 weeks, patient will contact the office, otherwise follow-up as needed. Patient Instructions: Scribed for Venkat Marquez PA-C, by Raúl Bates medical delivery driver, on 05/19/2023 at 12:30 PM EST. Venkat Ivey PA-C, have personally reviewed and agree with the information entered by the scribe. Coding Level of Care Code Est Pt Level 3 (63430) Diagnoses Arthritis of carpometacarpal (CMC) joint of left thumb M18.12 CPT Codes Coding - 50348 - Small joint: 51940 - Small Joint ([id number])
== END 2023-05-19 12:51 | disposition home or self-care (01) ==
PROVIDERS: PCP Internal Medicine; Visit Provider Physician Assistant
DX: M18.12 Unilateral primary osteoarthritis of first carpometacarpal joint, left hand (principal)
CPT/HCPCS: 20600; 99213

== ENCOUNTER → 2023-05-19 12:15 | Outpatient (BNVA) | payer MEDICARE, MEDICAID, SELFPAY | PROVIDERS: PCP Internal Medicine; Visit Provider Physician Assistant | DX: M18.12 Unilateral primary osteoarthritis of first carpometacarpal joint, left hand (principal) | CPT/HCPCS: 20600; 99212; J1020 ==

== ENCOUNTER 2023-08-25 14:42 | Outpatient (AMB) | payer MEDICARE, MEDICAID, SELFPAY ==
[2023-08-25 14:44] VITALS: BMI 19.0
--- NOTE | 2023-08-25 14:44 | MHC.OFFVIS ---
Intake Vital Signs 08/25/23 14:44 Height 4 ft 11 in Weight 94 lb BMI 19.0 Intake Visit Reasons: OV-Left thumb CMC Inj 05/19/23 Intake Note: Rylee an 87 yr old female presents today for a follow up of left thumb, last injection 05/19/23. Patient reports her last injection provided her with relief until recently. She would like to repeat. Allergies cephalexin Allergy (Intermediate, Verified 08/25/23 14:44) rash alendronate sodium [From Fosamax] Adverse Reaction (Intermediate, Verified 08/25/23 14:44) DIARRHEA From Augmentin Allergy (Severe, Uncoded 08/25/23 14:44) FACE, LIPS SWELL HPI OV-Left thumb CMC Inj 05/19/23 HPI Details 88-year-old female who returns to the office today for a follow-up of left thumb pain. She had her last injection on 05/19/23 which provided her relief until recently. She would like to repeat the injection. [facility] Medical History Primary osteoarthritis, left hand Social History Alcohol intake: current Alcohol intake frequency: holidays/special occasions only Alcohol type: wine Patient Tobacco Use Status: Never used Tobacco Review of Systems Const All systems reviewed & are unremarkable except as noted in HPI and below Physical Exam Vital Signs: BMI result Body Mass Index 19.0 Const General: cooperative and no acute distress Orientation/consciousness: patient oriented x3 Resp Effort & Inspection: normal respiratory effort and able to speak in complete sentences Cardio Peripheral pulses: Peripheral pulses 2+ throughout Neuro General: patient oriented x3 Extrem Other: Left thumb pain at the base of the thumb along the CMC joint. Pain with CMC grind. She is able to make a full fist and fully extend. NVI. Office Procedures Joint Injection/Drain Joint Injection/Drain Primary Site: left thumb Prep: site was prepped using aseptic technique, ethochloride spray was applied and injection warnings given Injected: 40 mg of, with 1 mL of, 1% plain lidocaine and decadron Procedure: The patient tolerated the procedure well and there was some relief with the local anesthesia Coding - Small Joint Procedure code (CPT) selection complete Assessment & Plan Assessment & Plan (1) Arthritis of carpometacarpal (CMC) joint of left thumb: Code(s): M18.12 - Unilateral primary osteoarthritis of first carpometacarpal joint, left hand Plan We discussed options today which include steroid injection. They did consent to move forward with the left thumb injection, which was tolerated well. I recommended rest, ice and elevation and OTC anti-inflammatories PRN for discomfort. If symptoms persist or worsens over the next 6-8 weeks, patient will contact the office, otherwise follow-up as needed. Patient Instructions: Scribed for Venkat Marquez PA-C, by Raúl Bates medical assistant supervisor, on 08/25/2023 at 3:00 PM EST. I, Venkat Marquez PA-C, have personally reviewed and agree with the information entered by the scribe. Coding Level of Care Code Est Pt Level 3 (61101) Diagnoses Arthritis of carpometacarpal (CMC) joint of left thumb M18.12 CPT Codes Coding - 94726 - Small joint: 91357 - Small Joint ([id number])
== END 2023-08-25 15:08 | disposition home or self-care (01) ==
PROVIDERS: PCP Internal Medicine; Visit Provider Physician Assistant
DX: M18.12 Unilateral primary osteoarthritis of first carpometacarpal joint, left hand (principal)
CPT/HCPCS: 20600; 99213

== ENCOUNTER → 2023-08-25 14:42 | Outpatient (BNVA) | payer MEDICARE, MEDICAID, SELFPAY | PROVIDERS: PCP Internal Medicine; Visit Provider Physician Assistant | DX: M18.12 Unilateral primary osteoarthritis of first carpometacarpal joint, left hand (principal) | CPT/HCPCS: 20600; 99212; J1100 ==

== ENCOUNTER → 2024-01-13 13:20 | Outpatient (BNVA) | payer MEDICARE, MEDICAID, SELFPAY | PROVIDERS: PCP Internal Medicine; Visit Provider Physician Assistant | DX: M18.12 Unilateral primary osteoarthritis of first carpometacarpal joint, left hand (principal) | CPT/HCPCS: 20600; 99212; J1010 ==

== ENCOUNTER 2024-01-13 13:21 | Outpatient (AMB) | payer MEDICARE, MEDICAID, SELFPAY ==
--- NOTE | 2024-01-13 13:26 | MHC.OFFVIS ---
Intake Visit Reasons: OV-Left thumb CMC Inj 05/19/23-follow up Intake Note: Rylee an 87 yr old female presents today for a follow up of left thumb, last injection on 08/25/23. Patient reports last injection provided her with relief, she would like to repeat injection. Allergies cephalexin Allergy (Intermediate, Verified 01/13/24 13:35) rash alendronate sodium [From Fosamax] Adverse Reaction (Intermediate, Verified 01/13/24 13:35) DIARRHEA From Augmentin Allergy (Severe, Uncoded 01/13/24 13:35) FACE, LIPS SWELL HPI HPI OV-Left thumb CMC Inj 05/19/23-follow up: Details: 88-year-old female who returns to the office today for a follow-up of left thumb pain. She had her last injection on 08/25/23 that provided her relief. She would like to repeat the injection. [facility] Medical History Primary osteoarthritis, left hand Social History Alcohol intake: current Alcohol intake frequency: holidays/special occasions only Alcohol type: wine Patient Tobacco Use Status: Never used Tobacco Review of Systems Const All systems reviewed & are unremarkable except as noted in HPI and below Physical Exam Extrem Other: Left thumb: Pain at the base of the thumb along the CMC joint. Pain with CMC grind, they are able to make a full fist and fully extend. NVI. Office Procedures Joint Injection/Drain Joint Injection/Drain Primary Site: left thumb Prep: site was prepped using aseptic technique, ethochloride spray was applied and injection warnings given Injected: 40 mg of, DepoMedrol, with 1 mL of and 1% plain lidocaine Procedure: The patient tolerated the procedure well and there was some relief with the local anesthesia Coding - Small Joint Procedure code (CPT) selection complete Assessment & Plan Assessment & Plan (1) Arthritis of carpometacarpal (CMC) joint of left thumb: Code(s): M18.12 - Unilateral primary osteoarthritis of first carpometacarpal joint, left hand Category: Medical Plan We discussed options today, which include steroid injection. The patient did consent to move forward with the left thumb injection, which was tolerated well. I recommended rest, ice, and elevation and OTC anti-inflammatories as needed for discomfort. If symptoms persist or worsen over the next 6-8 weeks, patient will contact the office, otherwise follow-up as needed. Patient Instructions: Scribed for Venkat Marquez PA-C, by Raúl Bates medical front desk specialist, on 01/13/2024 at 1:30 PM EST.? I, Venkat Marquez PA-C, have personally reviewed and agree with the information entered by the scribe. Coding Level of Care Code Est Pt Level 3 (50545) Diagnoses Arthritis of carpometacarpal (CMC) joint of left thumb M18.12 CPT Codes Coding - 79353 - Small joint: 35259 - Small Joint ([id number])
== END 2024-01-13 13:51 | disposition home or self-care (01) ==
PROVIDERS: PCP Internal Medicine; Visit Provider Physician Assistant
DX: M18.12 Unilateral primary osteoarthritis of first carpometacarpal joint, left hand (principal)
CPT/HCPCS: 20600; 99213

== ENCOUNTER 2024-05-10 13:11 | Outpatient (AMB) | payer MEDICARE, MEDICAID, SELFPAY ==
--- NOTE | 2024-05-10 13:33 | A.OFFVIS_ITS ---
Vital Signs 05/10/24 13:37 Height 4 ft 11 in Weight 94 lb BMI 19.0 Intake Visit Reasons: OV-Left thumb CMC Inj 05/19/23-follow up Intake Note: Rylee an 88 year old female who presents today for a follow up of left thumb CMC, last injection 01/13/24. Patient reports last injection provided her with some relief and is requesting to repeat injection today. Allergies cephalexin Allergy (Intermediate, Verified 05/10/24 13:44) rash alendronate sodium [From Fosamax] Adverse Reaction (Intermediate, Verified 05/10/24 13:44) DIARRHEA From Augmentin Allergy (Severe, Uncoded 05/10/24 13:44) FACE, LIPS SWELL Medication List - Last Reconciled 05/10/24 by Venkat Marquez PA-C acetaminophen (Tylenol Extra Strength) 500 mg PO Q6H PRN aspirin (Adult Low Dose Aspirin) 81 mg PO DAILY atorvastatin 80 mg PO DAILY carvedilol 12.5 mg PO BID cholecalciferol (vitamin D3) 1,250 mcg PO QWEEK ferrous sulfate 325 mg PO DAILY gabapentin 300 mg PO TID gabapentin 100 mg PO BID ibandronate mg PO .once a month lisinopril 20 mg PO DAILY naproxen 500 mg PO BID omeprazole 20 mg PO DAILY oxybutynin chloride ER 10 mg PO DAILY HPI HPI OV-Left thumb CMC Inj 05/19/23-follow up: Details: 88-year-old female who returns to the office today for a follow-up of left thumb pain. She had her last injection on 05/19/23. She would like to repeat the injection. [facility] Medical History Primary osteoarthritis, left hand Social History Alcohol intake: current Alcohol intake frequency: holidays/special occasions only Alcohol type: wine Patient Tobacco Use Status: Never used Tobacco Review of Systems Const All systems reviewed & are unremarkable except as noted in HPI and below Physical Exam Vital Signs: BMI result Body Mass Index 19.0 Extrem Other: Left thumb: Pain at the base of the thumb along the CMC joint. Pain with CMC grind, they are able to make a full fist and fully extend. NVI. Office Procedures AMB Joint Injection/Aspiration Joint Injection/Aspiration Primary Site: left thumb Prep: site was prepped using aseptic technique, ethochloride spray was applied and injection warnings given Injected: 80 mg of, DepoMedrol, with 1 mL of, 1% plain lidocaine and in the joint Procedure: The patient tolerated the procedure well and there was some relief with the local anesthesia Coding - Small Joint Procedure code (CPT) selection complete Assessment & Plan Assessment & Plan (1) Arthritis of carpometacarpal (CMC) joint of left thumb: Code(s): M18.12 - Unilateral primary osteoarthritis of first carpometacarpal joint, left hand Category: Medical Plan We discussed options today, which include steroid injection. The patient did consent to move forward with the left thumb injection, which was tolerated well. I recommended rest, ice, and elevation and OTC anti-inflammatories as needed for discomfort. If symptoms persist or worsens over the next 6-8 weeks, patient will contact the office, otherwise follow-up as needed. Patient Instructions: Scribed for Venkat Marquez PA-C, by Raúl Bates emergency medical technician/driver, on 05/10/2024 at 1:30 PM EST.? I, Venkat Marquez PA-C, have personally reviewed and agree with the information entered by the scribe. Coding Level of Care Code Est Pt Level 3 (59263) Complex EM visit Add On G2211 Diagnoses Arthritis of carpometacarpal (CMC) joint of left thumb M18.12 CPT Codes Coding - - Small joint: 16494 - Small Joint ([id number])
[2024-05-10 13:37] VITALS: BMI 19.0
== END 2024-05-10 13:54 | disposition home or self-care (01) ==
PROVIDERS: PCP Internal Medicine; Visit Provider Physician Assistant
DX: M18.12 Unilateral primary osteoarthritis of first carpometacarpal joint, left hand (principal)
CPT/HCPCS: 20600; 99213

== ENCOUNTER → 2024-05-10 13:11 | Outpatient (BNVA) | payer MEDICARE, MEDICAID, SELFPAY | PROVIDERS: PCP Internal Medicine; Visit Provider Physician Assistant | DX: M18.12 Unilateral primary osteoarthritis of first carpometacarpal joint, left hand (principal) | CPT/HCPCS: 20600; 99212; J1010; J2003 ==

== ENCOUNTER 2024-06-11 09:11 | Outpatient (REF) | payer MEDICARE, MEDICAID, SELFPAY ==
[2024-06-11 09:43] LABS: MANUAL DIFF FLAG NO
[2024-06-11 10:28] LABS: Basophils Absolute Auto 0.1 X10*3/uL (0.0-0.2); Basophils Percent Auto 0.6 % (0-2); Eosinophils Absolute Auto 0.4 X10*3/uL (0.0-0.4); Eosinophils Percent Auto 3.9 % (0-4); Hematocrit 37.4 % (37.0-47.0); Hemoglobin 12.6 g/dl (12.0-16.0); Imm Gran Abs Auto 0.02 X10*3/uL (0.00-0.03); Imm Gran Pct Auto 0.2 % (0.0-0.4); Lymphocytes Absolute Auto 1.9 X10*3/uL (1.2-4.9); Mean Corpuscular HGB Conc 33.7 g/dl (31.0-35.0); Mean Corpuscular Hemoglobin 30.1 pg (27.0-33.0); Mean Corpuscular Volume 89.3 fL (80.0-98.0); Monocytes Absolute Auto 0.7 X10*3/uL (0.1-1.2); Monocytes Percent Auto 7.7 % (2-11); Neutrophils Absolute Auto 6.4 x10*3/uL (2.0-8.3); Neutrophils Percent Auto 67.6 % (45-73); Platelet Count 303 X10*3/uL (160-400); Red Blood Count 4.19 X10*6/uL (4.20-5.50); Red Cell Distribution Width 13.5 % (11.0-16.0); White Blood Count 9.5 X10*3/uL (4.8-10.8)
[2024-06-11 11:14] LABS: Appearance Urine Clear; Color Urine Yellow; Glucose Urine UA Negative (Negative); Leukocyte Esterase Urine Negative (Negative); Nitrite Urine Negative (Negative); Specific Gravity - Urine <= 1.005 (1.005-1.025); Urine Blood Negative (Negative); Urine Ketones Negative (Negative); Urine Protein Negative (Neg-Trace)
[2024-06-11 11:27] LABS: Alanine Aminotransferase 17 U/L (0-31); Albumin Level 3.7 g/dL (3.5-5.0); Alkaline Phosphatase 72 U/L (39-117); Anion Gap 10 (12-20); Aspartate Amino Transferase 22 U/L (5-31); Bilirubin Total 0.4 mg/dL (0.0-1.0); Blood Urea Nitrogen 16 mg/dL (9-16); Calcium 8.9 mg/dL (8.4-10.2); Carbon Dioxide 25 mmol/L (22-29); Chloride 106 mmol/L (96-108); Cholesterol 129 mg/dL (<200); Estimated Glomerular Filt Rate > 60; Glucose Fasting 91 mg/dL (60-99); HDL Cholesterol 49 mg/dL (>40); LDL Cholesterol Calculated 66 mg/dL (<100); Potassium 4.3 mmol/L (3.3-5.1); Sodium 137 mmol/L (135-145); Total Protein 5.9 g/dL (6.5-8.0); Triglycerides 74 mg/dL (<150)
== END 2024-06-11 09:12 | disposition home or self-care (01) ==
LOC: HO.LAB 09:11
PROVIDERS: PCP Internal Medicine; Visit Provider Internal Medicine
DX: R53.83 Other fatigue (principal); E78.5 Hyperlipidemia, unspecified
CPT/HCPCS: 36415; 80053; 80061; 81003; 85025

== ENCOUNTER 2024-09-08 13:15 | Outpatient (AMB) | payer MEDICARE, MEDICAID, SELFPAY ==
[2024-09-08 13:20] VITALS: BMI 39.2
--- NOTE | 2024-09-08 13:20 | A.OFFVIS_ITS ---
Vital Signs 09/08/24 13:20 Height 4 ft 11 in Weight 194 lb BMI 39.2 Intake Visit Reasons: OV-Left thumb CMC Inj 05/19/23-follow up Intake Note: Rylee is an 89 year old female who presents today for a follow up of her Left CMC joint OA. She received an injection at her last visit on 05/10/2024. Patient reports that this injection was helpful and she would like to repeat today Allergies cephalexin Allergy (Intermediate, Verified 05/10/24 13:44) rash alendronate sodium [From Fosamax] Adverse Reaction (Intermediate, Verified 13:44) DIARRHEA From Augmentin Allergy (Severe, Uncoded 05/10/24 13:44) FACE, LIPS SWELL HPI HPI OV-Left thumb CMC Inj 05/19/23-follow up: Details: 89-year-old female presents to the office today for a follow-up left thumb CMC arthritis. Most recent injection was 05/10/2024. The injections have been helpful where she is able to perform activities such as grasping or gripping. Over time the injection has worn off and she has developed some discomfort with activities. [facility] Medical History Primary osteoarthritis, left hand Social History Alcohol intake: current Alcohol intake frequency: holidays/special occasions only Alcohol type: wine Patient Tobacco Use Status: Never used Tobacco Review of Systems Const All systems reviewed & are unremarkable except as noted in HPI and below Physical Exam Vital Signs: BMI result Body Mass Index 39.2 Extrem Other: Left thumb: Pain at the base of the thumb along the CMC joint. Pain with CMC grind, they are able to make a full fist and fully extend. NVI. Office Procedures AMB Joint Injection/Aspiration Joint Injection/Aspiration Primary Site: left thumb Prep: site was prepped using aseptic technique, ethochloride spray was applied and injection warnings given Injected: 80 mg of, DepoMedrol, with 1 mL of, 1% plain lidocaine and in the joint Procedure: The patient tolerated the procedure well and there was some relief with the local anesthesia Coding - Small Joint Procedure code (CPT) selection complete Assessment & Plan Assessment & Plan (1) Arthritis of carpometacarpal (CMC) joint of left thumb: Code(s): M18.12 - Unilateral primary osteoarthritis of first carpometacarpal joint, left hand Category: Medical Plan We discussed options today, which include steroid injection. The patient did consent to move forward with the left thumb injection, which was tolerated well. I recommended rest, ice, and elevation and OTC anti-inflammatories as needed for discomfort. If symptoms persist or worsens over the next 6-8 weeks, patient will contact the office, otherwise follow-up as needed. Coding Level of Care Code Est Pt Level 3 (88306) Complex EM visit Add On G2211 Diagnoses Arthritis of carpometacarpal (CMC) joint of left thumb M18.12 CPT Codes Coding - 40433 - Small joint: 02510 - Small Joint ([id number])
== END 2024-09-08 13:37 | disposition home or self-care (01) ==
LOC: HO.HOS 13:16
PROVIDERS: PCP Internal Medicine; Visit Provider Physician Assistant
DX: M18.12 Unilateral primary osteoarthritis of first carpometacarpal joint, left hand (principal)
CPT/HCPCS: 20600; 99213

== ENCOUNTER → 2024-09-08 13:15 | Outpatient (BNVA) | payer MEDICARE, MEDICAID, SELFPAY | PROVIDERS: PCP Internal Medicine; Visit Provider Physician Assistant | DX: M18.12 Unilateral primary osteoarthritis of first carpometacarpal joint, left hand (principal) | CPT/HCPCS: 20600; 99212; J1010; J2003 ==

== ENCOUNTER 2024-12-17 07:37 | Outpatient (REF) | payer OTHER, SELFPAY ==
[2024-12-17 07:57] LABS: MANUAL DIFF FLAG NO
[2024-12-17 08:35] LABS: Basophils Absolute Auto 0.1 X10*3/uL (0.0-0.2); Basophils Percent Auto 0.9 % (0-2); Eosinophils Absolute Auto 0.3 X10*3/uL (0.0-0.4); Eosinophils Percent Auto 2.7 % (0-4); Hemoglobin 12.8 g/dl (12.0-16.0); Imm Gran Abs Auto 0.03 X10*3/uL (0.00-0.03); Imm Gran Pct Auto 0.3 % (0.0-0.4); Lymphocytes Absolute Auto 1.6 X10*3/uL (1.2-4.9); Lymphocytes Percent Auto 17.7 % (20-40); Mean Corpuscular HGB Conc 32.8 g/dl (31.0-35.0); Mean Corpuscular Hemoglobin 29.4 pg (27.0-33.0); Mean Corpuscular Volume 89.4 fL (80.0-98.0); Mean Platelet Volume 10.1 fL (9.4-12.3); Monocytes Percent Auto 10.8 % (2-11); Neutrophils Absolute Auto 6.2 x10*3/uL (2.0-8.3); Neutrophils Percent Auto 67.6 % (45-73); Platelet Count 286 X10*3/uL (160-400); Red Blood Count 4.36 X10*6/uL (4.20-5.50); Red Cell Distribution Width 13.5 % (11.0-16.0); White Blood Count 9.2 X10*3/uL (4.8-10.8)
[2024-12-17 09:17] LABS: Alanine Aminotransferase 22 U/L (0-31); Alkaline Phosphatase 73 U/L (39-117); Anion Gap 9 (12-20); Aspartate Amino Transferase 26 U/L (5-31); Bilirubin Total 0.5 mg/dL (0.0-1.0); Blood Urea Nitrogen 18 mg/dL (9-16); Calcium 9.4 mg/dL (8.4-10.2); Carbon Dioxide 25 mmol/L (22-29); Chloride 104 mmol/L (96-108); Cholesterol 126 mg/dL (<200); Estimated Glomerular Filt Rate > 60; Glucose Fasting 96 mg/dL (60-99); HDL Cholesterol 47 mg/dL (>40); LDL Cholesterol Calculated 63 mg/dL (<100); Potassium 4.4 mmol/L (3.3-5.1); Sodium 134 mmol/L (135-145); Total Protein 6.2 g/dL (6.5-8.0); Triglycerides 84 mg/dL (<150)
== END 2024-12-17 07:38 | disposition home or self-care (01) ==
LOC: HO.LAB 07:37
PROVIDERS: PCP Internal Medicine; Visit Provider Internal Medicine
DX: Z00.00 Encounter for general adult medical examination without abnormal findings (principal); R53.83 Other fatigue; E78.5 Hyperlipidemia, unspecified
CPT/HCPCS: 36415; 80053; 80061; 85025

== ENCOUNTER 2025-03-07 13:01 | Outpatient (AMB) | payer OTHER, SELFPAY ==
--- NOTE | 2025-03-07 13:04 | A.OFFPC_ITS ---
Vital Signs 03/07/25 13:11 03/07/25 13:19 Height 4 ft 7.51 in Weight 90 lb BMI 20.5 BP 204/86 H 192/84 H Respiration 14 Pulse 60 Pulse Source Pulse Oximeter Temp 98.6 F Temp Source Temporal Artery Scan Pulse Oximetry (%) 98 Oxygen Delivery Method Room Air Intake Visit Reasons: Charly Cheung/Dr. Henderson ~ HTN Founder & Ceo Required: No Accompanied by: Self / Same As Patient Allergies cephalexin Allergy (Intermediate, Verified 03/07/25 15:05) rash alendronate sodium (From Fosamax) Adverse Reaction (Intermediate, Verified 03/07/25 15:05) DIARRHEA From Augmentin Allergy (Severe, Uncoded 03/07/25 15:05) FACE, LIPS SWELL Medication List - Last Reconciled 03/07/25 by Latonya Valdivia PA-C acetaminophen (Tylenol Extra Strength) 500 mg PO Q6H PRN aspirin (Adult Low Dose Aspirin) 81 mg PO DAILY atorvastatin 80 mg PO DAILY carvedilol 12.5 mg PO BID cholecalciferol (vitamin D3) 1,250 mcg PO QWEEK ferrous sulfate 325 mg PO DAILY gabapentin 300 mg PO BID ibandronate mg PO .once a month lisinopril 40 mg PO DAILY 3 months naproxen 500 mg PO BID nifedipine ER 30 mg PO DAILY omeprazole 20 mg PO DAILY oxybutynin chloride ER 10 mg PO DAILY Tobacco use date assessed: 03/07/25 Fall risk assessment: 1 Fall in past year Last assessed Fall Risk: 03/07/25 Dental Screening Dental Screen Date: 03/07/25 Did you have a dental visit in the last 12 months?: Yes Did you have a dental problem in the last 6 months where you did not have access to dental care?: No Was dental information given to patient?: Patient has dentist HPI [facility]/Dr. Henderson ~ HTN HPI Details The patient is an 89-year-old female presenting for a new patient appointment with hypertension. She reports a history of coronary artery bypass grafting seven years ago and considers herself a survivor, counting her blessings for her current health status. The patient monitors her blood pressure at home, typically recording values around 131/128 mmHg for systolic blood pressure, but recently noted a high reading of 198 mmHg, which is atypical for her. She denies any associated symptoms such as dizziness, changes in vision, headaches, chest pain, shortness of breath, nausea, or lower leg swelling. Her medical history includes vitamin D deficiency, iron deficiency anemia, and hyperlipidemia, for which she takes atorvastatin. She also experiences constipation, which she attributes to her medication regimen, noting bowel movements every three to four days. The patient is on multiple medications including gabapentin, carvedilol, lisinopril, and nifedipine for blood pressure management, as well as supplements for vitamin D and iron deficiency. She has discontinued gabapentin in the past but resumed it due to inadequate pain control with Tylenol. Recent blood work indicated normal complete blood count and liver enzymes, with a slightly low sodium level at 134 mmol/L. Her cholesterol levels are well- controlled with an LDL of 63 mg/dL and triglycerides at 84 mg/dL. [facility] Medical History (Updated 03/07/25 @ 15:11 by Latonya Valdivia PA-C) Colonoscopy refused (~03/07/25) Osteoporosis (~05/18/20) History of mammogram (~06/18/21) Constipation Iron deficiency anemia Coronary artery disease Pure hypercholesterolemia, unspecified Vitamin D deficiency GERD (gastroesophageal reflux disease) Hypertension Primary osteoarthritis, left hand Social History Housing: House Alcohol intake: current Alcohol intake frequency: holidays/special occasions only Alcohol type: wine Patient Tobacco Use Status: Former Tobacco user service: No Current occupational status: retired Cognitive needs: Yes (cane sometimes) Hearing needs: No Vision needs: Yes (rx glasses) Questionnaire PHQ-9 Over the last 2 weeks, how often have you been bothered by any of the following problems? 1. Little interest or pleasure in doing things: not at all 2. Feeling down, depressed, or hopeless: not at all 3. Trouble falling or staying asleep, or sleeping too much: not at all 4. Feeling tired or having little energy: not at all 5. Poor appetite or overeating: not at all 6. Feeling bad about yourself - or that you are a failure or have let yourself or your family down: not at all 7. Trouble concentrating on things, such as reading the newspaper or watching television: not at all 8. Moving or speaking so slowly that other people could have noticed. Or the opposite - being so fidgety or restless that you have been moving around a lot more than usual: not at all 9. Thoughts that you would be better off or of hurting yourself in some way: not at all Total score: 0 Depression Screening Interpretation: Negative Depression Screening Done: Yes 88660 - PHQ-9 Billing: Yes Source: Developed by Drs. Scottie Orellana, Rosa Chapa, Dashawn Chilel and colleagues, with an educational benny from [employer]. Thrive Questionnaire Date Thrive assessed: 03/07/25 I am a: Patient What is your living situation today?: I have a steady place to live Within the past 12 months, did the food you bought not last and you didn't have the money to get more?: Never true Within the past 12 months, did you worry whether your food would run out before you got money to buy more?: Never true Do you have trouble paying for medicines?: No Do you have trouble getting transportation to medical appointments?: No Do you have trouble paying your heating and electricity bill?: No Do you have trouble taking care of your child, family member or friend?: No Do you have trouble with day-to-day activities such as bathing, preparing meals, shopping, managing finances, etc.?: No Are you currently unemployed and looking for a job?: No Are you interested in more education?: No Please select the resources that you would like help with: None THRIVE Score: 0 AUDIT C Alcohol Use Questionnaire (AUDIT-C) 1. How often do you have a drink containing alcohol?: Monthly or less 2. How many drinks containing alcohol do you have on a typical day when you are drinking?: 1 or 2 3. How often do you have six or more drinks on one occasion?: Never Total Score: 1 Score Reviewed/Action Taken: No ERICH-7 AMB Questionnaire ERICH-7 Date ERICH - 7 assessed: 03/07/25 Feeling nervous, anxious, or on edge: 0 = Not at all Not being able to stop or control worryin = Not at all Worrying too much about different things: 0 = Not at all Trouble relaxin = Not at all Being so restless that it is hard to sit still: 0 = Not at all Becoming easily annoyed or irritable: 0 = Not at all Feeling afraid as if something awful might happen: 0 = Not at all Total ERICH-7 score (0-4 normal; 5-9 mild; 10-14 moderate; 15-21 severe): 0 Source: Developed by Drs. Scottie rOellana, Rosa Chapa, Dashawn Chilel and colleagues, with an educational benny from [employer]. ERICH-7 Assessment Billing ERICH-7 Assessment Tool: ERICH-7 Assessment 69685 Review of Systems Const Details: - Cardiovascular: Denies chest pain, orthopnea, or syncope. - Respiratory: Denies dyspnea, cough, hemoptysis, or wheezing. - Neurological: Denies headaches, dizziness, or balance issues. - Gastrointestinal: Denies nausea, vomiting, diarrhea, or constipation. Reports bowel movements every three to four days. - Genitourinary: Denies dysuria, hematuria, or urinary frequency. All systems reviewed & are unremarkable except as noted in HPI and below Physical exam (Primary Care) Vital Signs: Last Vital Signs Temp 98.6 F 03/07/25 13:11 Pulse 60 03/07/25 13:11 Resp 14 03/07/25 13:11 BP 192/84 H 03/07/25 13:19 Pulse Ox 98 03/07/25 13:11 Oxygen Delivery Method Room Air 03/07/25 13:11 Care Plan Goal for BP management: <140/90 will increase the patient's lisinopril from 20 mg to 40 mg patient will return on for blood pressure check with nurse BMI result Body Mass Index 20.5 Normal BMI Tobacco/Smoking Status: Tobacco use Status Tobacco use date assessed 03/07/25 03/07/25 13:10 Patient Tobacco Use Status Former Tobacco user 03/07/25 13:18 PHQ-9: PHQ-9 Score PHQ-9: Total score 0 03/07/25 13:19 Depression Screening Interpretation: Negative Thrive Assessment: Date of Thrive Assessment Date Thrive assessed 03/07/25 03/07/25 13:10 Const Other: Appearance: Alert. Oriented X3. No acute distress. Head: Normal external exam. Normocephalic. Atraumatic. Eyes: Pupils are equal, round, and reactive to light. Extraocular movements intact. Conjunctiva and sclera normal. Eyelids normal. Throat: Pharynx normal. Uvula midline. Moist mucous membranes. Neck: Normal inspection. Neck supple. Full range of motion. Cardiovascular: Blood pressure 196/85. Normal heart rate and rhythm. Heart sound normal. No murmurs noted. Pulses normal throughout. Respiratory: No respiratory distress. Painless inspiration. Breath sounds normal. No wheezes/rales/rhonchi noted. Chest nontender. No accessory muscle usage noted or decreased air movement noted. Back: Full range of motion noted. Skin: Skin warm and dry. Normal skin color. Normal skin turgor. No rashes/lesions/lacerations noted. Extremities: No lower extremity edema. Extremities exhibit normal range of motion. Neuro: Oriented X 3. No motor deficit. No sensory deficit. Reflexes normal. Results Reviewed Results Reviewed: - Labs: Complete blood count normal, sodium level slightly low at 134 mmol/L, cholesterol levels well-controlled with LDL 63 mg/dL and triglycerides 84 mg/dL. Coding Level of Care Code New Pt Level 4 (10575) Complex EM visit Add On G2211 Diagnoses Hypertension I10 Coronary artery disease I25.10 Vitamin D deficiency E55.9 Iron deficiency anemia D50.9 Constipation K59.00 Pure hypercholesterolemia, unspecified E78.00 Osteoporosis M81.0 Colonoscopy refused Z53.20 Additional Codes PHQ-9 - 61946 - PHQ-9 Billing: Yes ([id number]) ERICH-7 Assessment Billing - ERICH-7 Assessment Tool: ERICH-7 Assessment 85735 ([id number]) Assessment & Plan Assessment & Plan (1) Hypertension: Code(s): I10 - Essential (primary) hypertension Category: Medical Plan: The patient's blood pressure was noted to be elevated at 196/85 mmHg during the visit, which is atypical for her as she usually records values around 131/128 mmHg at home. She denies any symptoms such as dizziness, headaches, or chest pain associated with the elevated blood pressure. The plan includes increasing the lisinopril dosage to 40 mg daily and scheduling a follow-up appointment on to recheck the blood pressure. (2) Coronary artery disease: Comment: Status post bypass grafting performed 7 years ago Code(s): I25.10 - Atherosclerotic heart disease of squ[place]in coronary artery without angina pectoris Category: Medical Plan: The patient has a history of coronary artery bypass grafting performed seven years ago, and she reports no current cardiac symptoms. She follows up with her motorcycle service technician annually and has no recent issues reported. (3) Vitamin D deficiency: Code(s): E55.9 - Vitamin D deficiency, unspecified Category: Medical Plan: The patient is on vitamin D supplementation for vitamin D deficiency, and no changes to this regimen were discussed during the visit. (4) Iron deficiency anemia: Code(s): D50.9 - Iron deficiency anemia, unspecified Category: Medical Plan: The patient is on iron supplementation for iron deficiency anemia, and no changes to this regimen were discussed during the visit. (5) Constipation: Code(s): K59.00 - Constipation, unspecified Category: Medical Plan: The patient experiences constipation, which she attributes to her medication regimen, with bowel movements occurring every three to four days. No specific interventions were discussed during the visit. (6) Pure hypercholesterolemia, unspecified: Code(s): E78.00 - Pure hypercholesterolemia, unspecified Category: Medical Plan: The patient's hyperlipidemia is managed with atorvastatin, and her cholesterol levels are well-controlled with an LDL of 63 mg/dL. (7) Osteoporosis: Onset Date: ~05/18/20 Code(s): M81.0 - Age-related osteoporosis without current pathological fracture Category: Medical Plan: Condition is chronic and stable continue to monitor. (8) Colonoscopy refused: Onset Date: ~03/07/25 Comment: Patient reports she has never had a colonoscopy and does not want a colonoscopy Code(s): Z53.20 - Procedure and treatment not carried out because of patient's decision for unspecified reasons Category: Medical Plan: Patient educated and refused colonoscopy. Plan Plan Patient was informed and verbally consented to the use of an ambient scribe for clinic note documentation during this visit. 1. Hypertension The patient's blood pressure was noted to be elevated at 196/85 mmHg during the visit, which is atypical for her as she usually records values around 131/128 mmHg at home. She denies any symptoms such as dizziness, headaches, or chest pain associated with the elevated blood pressure. The plan includes increasing the lisinopril dosage to 40 mg daily and scheduling a follow-up appointment on to recheck the blood pressure. 2. History Of Coronary Artery Bypass Grafting The patient has a history of coronary artery bypass grafting performed seven years ago, and she reports no current cardiac symptoms. She follows up with her motorcycle service technician annually and has no recent issues reported. 3. Vitamin D Deficiency The patient is on vitamin D supplementation for vitamin D deficiency, and no changes to this regimen were discussed during the visit. 4. Iron Deficiency Anemia The patient is on iron supplementation for iron deficiency anemia, and no changes to this regimen were discussed during the visit. 5. Constipation The patient experiences constipation, which she attributes to her medication regimen, with bowel movements occurring every three to four days. No specific interventions were discussed during the visit. 6. Hyperlipidemia The patient's hyperlipidemia is managed with atorvastatin, and her cholesterol levels are well-controlled with an LDL of 63 mg/dL. During the visit, I discussed with the patient the importance of monitoring her blood pressure closely due to the recent elevated readings. We agreed to increase her lisinopril dosage to 40 mg daily and scheduled a follow-up appointment on to reassess her blood pressure. I also reviewed her current medication regimen and confirmed that her cholesterol levels are well- controlled. We discussed the need for regular follow-ups with her motorcycle service technician and the importance of maintaining her current medication regimen for vitamin D and iron deficiency. Orders: Orders Basic Metabolic Panel Today Z00.00 - Encounter for general adult medical examination without abnormal findings Vitamin B12 and Folate Today Z00.00 - Encounter for general adult medical examination without abnormal findings Vitamin D 25-OH Total Today Z00.00 - Encounter for general adult medical examination without abnormal findings TSH reflex Free T4 Today Z00.00 - Encounter for general adult medical examination without abnormal findings Magnesium Today Z00.00 - Encounter for general adult medical examination without abnormal findings Hemoglobin A1c Today Z00.00 - Encounter for general adult medical examination without abnormal findings Medications: New lisinopril 40 mg PO DAILY 90 tabs 3RF 3 months Patient Instructions: - Take lisinopril 40 mg daily until the next appointment. - Monitor blood pressure at home and report any significant changes. - Follow up on for a blood pressure check. - Continue current medication regimen for vitamin D and iron deficiency. - Maintain regular follow-ups with your motorcycle service technician.
[2025-03-07 13:11] VITALS: BP 204/86; PULSE 60; RESP 14; TEMP 37; O2SAT 98; BMI 20.5
[2025-03-07 13:19] VITALS: BP 192/84
== END 2025-03-07 13:47 | disposition home or self-care (01) ==
LOC: HO.HMCSH 13:01
PROVIDERS: PCP Internal Medicine; Visit Provider Physician Assistant Medical
DX: I10 Essential (primary) hypertension (principal); I25.10 Atherosclerotic heart disease of native coronary artery without angina pectoris; E55.9 Vitamin D deficiency, unspecified; D50.9 Iron deficiency anemia, unspecified; K59.00 Constipation, unspecified; E78.00 Pure hypercholesterolemia, unspecified; M81.0 Age-related osteoporosis without current pathological fracture; Z53.20 Procedure and treatment not carried out because of patient's decision for unspecified reasons

== ENCOUNTER → 2025-03-10 13:05 | Outpatient (BNVA) | payer OTHER, SELFPAY | PROVIDERS: PCP Internal Medicine | DX: Z01.30 Encounter for examination of blood pressure without abnormal findings (principal) | CPT/HCPCS: 99211 ==

== ENCOUNTER → 2025-03-24 13:07 | Outpatient (BNVA) | payer OTHER, SELFPAY | PROVIDERS: PCP Internal Medicine | DX: I10 Essential (primary) hypertension (principal) | CPT/HCPCS: 99211 ==

== ENCOUNTER 2025-04-14 13:24 | Outpatient (AMB) | payer OTHER, SELFPAY ==
--- NOTE | 2025-04-14 13:29 | MHC.PC.OV ---
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: No Accompanied by: Self / Same As Patient Allergies cephalexin Allergy (Intermediate, Verified 04/14/25 13:43) rash alendronate sodium (From Fosamax) Adverse Reaction (Intermediate, Verified 04/14/25 13:43) DIARRHEA From Augmentin Allergy (Severe, Uncoded 04/14/25 13:43) FACE, LIPS SWELL Medication List - Last Reconciled 04/14/25 by Latonya Valdivia PA-C acetaminophen (Tylenol Extra Strength) 500 mg PO Q6H PRN aspirin (Adult Low Dose Aspirin) 81 mg PO DAILY atorvastatin 80 mg PO DAILY carvedilol 12.5 mg PO BID cholecalciferol (vitamin D3) (Vitamin D3) 50 mcg PO DAILY ferrous sulfate 325 mg PO DAILY gabapentin 300 mg PO BID ibandronate mg PO .once a month lisinopril 40 mg PO DAILY 3 months naproxen 500 mg PO BID nifedipine ER 30 mg PO DAILY omeprazole 20 mg PO DAILY oxybutynin chloride ER 10 mg PO DAILY Tobacco use date assessed: 04/14/25 Fall risk assessment: No Falls in past year Last assessed Fall Risk: 04/14/25 Dental Screening Dental Screen Date: 03/07/25 Did you have a dental visit in the last 12 months?: Yes Did you have a dental problem in the last 6 months where you did not have access to dental care?: No Was dental information given to patient?: Patient has dentist HPI 1 month follow up HPI Details The patient is an 89-year-old female presenting with a primary concern of blood pressure management. She reports that her blood pressure readings at home are generally normal, although she experiences elevated readings during medical visits, possibly due to anxiety. The patient has been advised by her cement truck loader Elder Mckeon MD from [facility] to take nifedipine 30 mg half tablet daily in the evening, in addition to her morning lisinopril 20 mg daily and carvedilol 12.5 mg b.i.d. regimen. The patient has a significant cardiovascular history, including open heart surgery and a diagnosis of cardiovascular disease. She has been under the care of a cement truck loader since her surgery and follows a medication regimen to manage her condition. Social History - Functional Status: The patient is able to drive and uses a walker for stability when necessary. COUNT INCLUDES THE [facility] Medical History Colonoscopy refused (~03/07/25) Osteoporosis (~05/18/20) History of mammogram (~06/18/21) Constipation Iron deficiency anemia Coronary artery disease Pure hypercholesterolemia, unspecified Vitamin D deficiency GERD (gastroesophageal reflux disease) Hypertension Primary osteoarthritis, left hand Social History Housing: House Alcohol intake: current Alcohol intake frequency: holidays/special occasions only Alcohol type: wine Patient Tobacco Use Status: Former Tobacco user service: No Current occupational status: retired Cognitive needs: Yes (cane sometimes) Hearing needs: No Vision needs: Yes (rx glasses) Questionnaire PHQ-9 Over the last 2 weeks, how often have you been bothered by any of the following problems? 1. Little interest or pleasure in doing things: not at all 2. Feeling down, depressed, or hopeless: not at all 3. Trouble falling or staying asleep, or sleeping too much: not at all 4. Feeling tired or having little energy: not at all 5. Poor appetite or overeating: not at all 6. Feeling bad about yourself - or that you are a failure or have let yourself or your family down: not at all 7. Trouble concentrating on things, such as reading the newspaper or watching television: not at all 8. Moving or speaking so slowly that other people could have noticed. Or the opposite - being so fidgety or restless that you have been moving around a lot more than usual: not at all 9. Thoughts that you would be better off or of hurting yourself in some way: not at all Total score: 0 Depression Screening Interpretation: Negative Depression Screening Done: Yes 26404 - PHQ-9 Billing: Yes Source: Developed by Drs. Scottie Orellana, Rosa Chapa, Dashawn Chilel and colleagues, with an educational benny from [employer]. Thrive Questionnaire Date Thrive assessed: 04/14/25 I am a: Patient What is your living situation today?: I have a steady place to live Within the past 12 months, did the food you bought not last and you didn't have the money to get more?: Never true Within the past 12 months, did you worry whether your food would run out before you got money to buy more?: Never true Do you have trouble paying for medicines?: No Do you have trouble getting transportation to medical appointments?: No Do you have trouble paying your heating and electricity bill?: No Do you have trouble taking care of your child, family member or friend?: No Do you have trouble with day-to-day activities such as bathing, preparing meals, shopping, managing finances, etc.?: No Are you currently unemployed and looking for a job?: No Are you interested in more education?: No Please select the resources that you would like help with: None THRIVE Score: 0 AUDIT C Alcohol Use Questionnaire (AUDIT-C) 1. How often do you have a drink containing alcohol?: Monthly or less 2. How many drinks containing alcohol do you have on a typical day when you are drinking?: 1 or 2 3. How often do you have six or more drinks on one occasion?: Never Total Score: 1 Score Reviewed/Action Taken: No ERICH-7 AMB Questionnaire ERICH-7 Date ERICH - 7 assessed: 04/14/25 Feeling nervous, anxious, or on edge: 0 = Not at all Not being able to stop or control worryin = Not at all Worrying too much about different things: 0 = Not at all Trouble relaxin = Not at all Being so restless that it is hard to sit still: 0 = Not at all Becoming easily annoyed or irritable: 0 = Not at all Feeling afraid as if something awful might happen: 0 = Not at all Total ERICH-7 score (0-4 normal; 5-9 mild; 10-14 moderate; 15-21 severe): 0 Source: Developed by Drs. Scottie Orellana, Rosa Chapa, Dashawn Chilel and colleagues, with an educational benny from [employer]. ERICH-7 Assessment Billing ERICH-7 Assessment Tool: ERICH-7 Assessment 58685 Review of Systems Const Details: - Cardiovascular: Reports elevated blood pressure readings during medical visits. Denies chest pain or syncope. All systems reviewed & are unremarkable except as noted in HPI and below Physical exam (Primary Care) Vital Signs: Last Vital Signs Temp 96.8 F 04/14/25 13:33 Pulse 59 04/14/25 13:33 Pulse Ox 99 04/14/25 13:33 Oxygen Delivery Method Room Air 04/14/25 13:33 Care Plan Goal for BP management: <140/90 patient will continue lisinopril 20 mg daily, carvedilol 12.5 mg b.i.d. and nifedipine half tablet 30 mg in the evening she will return in 1 week for blood pressure check with the with the nurse and she will also return 1 month from next week for CRESCENCIO/MD visit Tobacco/Smoking Status: Tobacco use Status Tobacco use date assessed 04/14/25 04/14/25 13:30 Patient Tobacco Use Status Former Tobacco user 04/14/25 13:30 PHQ-9: PHQ-9 Score PHQ-9: Total score 0 04/14/25 13:30 Depression Screening Interpretation: Negative Thrive Assessment: Date of Thrive Assessment Date Thrive assessed 04/14/25 04/14/25 13:30 Const Other: Appearance: Alert. Oriented X3. No acute distress. Head: Normal external exam. Normocephalic. Atraumatic. Eyes: Pupils are equal, round, and reactive to light. Extraocular movements intact. Conjunctiva and sclera normal. Eyelids normal. Throat: Pharynx normal. Uvula midline. Moist mucous membranes. Neck: Normal inspection. Neck supple. Full range of motion. Cardiovascular: Normal heart rate and rhythm. Heart sound normal. No murmurs noted. Pulses normal throughout. Respiratory: No respiratory distress. Painless inspiration. Breath sounds normal. Back: Full range of motion noted. Skin: Skin warm and dry. Normal skin color. Extremities: Extremities exhibit normal range of motion. Neuro: Oriented X 3. No motor deficit. No sensory deficit. Reflexes normal. Coding Level of Care Code Est Pt Level 4 (99252) Complex EM visit Add On G2211 Diagnoses Hypertension I10 Coronary artery disease I25.10 Additional Codes ERICH-7 Assessment Billing - ERICH-7 Assessment Tool: ERICH-7 Assessment 34196 ([id number]) PHQ-9 - 73288 - PHQ-9 Billing: Yes ([id number]) Time Spent (min) 50 Assessment & Plan Assessment & Plan (1) Hypertension: Code(s): I10 - Essential (primary) hypertension Category: Medical Plan: The patient is advised to continue her current antihypertensive regimen, which includes lisinopril 20 mg in the morning, 12.5 mg carvedilol twice daily, and nifedipine 30 mg half tablet in the evening. She is instructed to monitor her blood pressure at home and report any significant changes. A follow-up telehealth appointment is scheduled to reassess her blood pressure management. (2) Coronary artery disease: Comment: Status post bypass grafting performed 7 years ago Code(s): I25.10 - Atherosclerotic heart disease of crow coronary artery without angina pectoris Category: Medical Plan: The patient is under the care of a cement truck loader and follows a medication regimen to manage her cardiovascular disease. Continued monitoring and medication adherence are emphasized to prevent complications. Plan Plan Patient was informed and verbally consented to the use of an ambient scribe for clinic note documentation during this visit. 1. Essential Hypertension The patient is advised to continue her current antihypertensive regimen, which includes lisinopril 20 mg in the morning, 12.5 mg carvedilol twice daily, and nifedipine 30 mg half tablet in the evening. She is instructed to monitor her blood pressure at home and report any significant changes. A follow-up telehealth appointment is scheduled to reassess her blood pressure management within 1 week with the nurse. And then she will return with us within 1 month. 2. History Of Open Heart Surgery The patient has a history of open heart surgery and continues to be monitored by her cement truck loader. Regular follow-ups are recommended to ensure optimal cardiovascular health. 3. Cardiovascular Disease The patient is under the care of a cement truck loader and follows a medication regimen to manage her cardiovascular disease. Continued monitoring and medication adherence are emphasized to prevent complications. During the visit, I discussed with the patient the importance of adhering to her antihypertensive regimen, including lisinopril, carvedilol, and nifedipine, to manage her blood pressure effectively. We reviewed her home blood pressure monitoring and emphasized the need for regular follow-ups to assess her cardiovascular health. A telehealth appointment was scheduled to ensure continuity of care and to adjust her treatment plan as needed. Orders: Orders Influenza [id number] Immunization Today Z23 - Encounter for immunization Medications: New Fluarix [id number] (PF) (flu vac ts (6mos up)-PF) 0.5 mL IM ONCE 0.5 mL 0RF NS Z23 - Encounter for immunization Patient Instructions: - Continue taking lisinopril 20 mg in the morning, carvedilol twice daily, and nifedipine half tablet in the evening. - Monitor blood pressure at home regularly and report any significant changes. - Attend the scheduled telehealth appointment to reassess blood pressure management.
[2025-04-14 13:33] VITALS: BP 160/90; PULSE 59; TEMP 36; O2SAT 99
== END 2025-04-14 14:11 | disposition home or self-care (01) ==
LOC: HO.HMCSH 13:24
PROVIDERS: PCP Internal Medicine; Visit Provider Physician Assistant Medical
DX: I10 Essential (primary) hypertension (principal); I25.10 Atherosclerotic heart disease of native coronary artery without angina pectoris; Z23 Encounter for immunization

== ENCOUNTER → 2025-04-14 13:24 | Outpatient (BNVA) | payer OTHER, SELFPAY | PROVIDERS: PCP Internal Medicine; Visit Provider Physician Assistant Medical | DX: I10 Essential (primary) hypertension (principal); I25.10 Atherosclerotic heart disease of native coronary artery without angina pectoris; Z28.89 Immunization not carried out for other reason | CPT/HCPCS: 90471; 96127; 99212 ==

== ENCOUNTER → 2025-04-21 11:11 | Outpatient (BNVA) | payer OTHER, SELFPAY | PROVIDERS: PCP Internal Medicine | DX: I10 Essential (primary) hypertension (principal) | CPT/HCPCS: 99211 ==

== ENCOUNTER 2025-06-01 10:26 | Outpatient (AMB) | payer OTHER, SELFPAY ==
--- NOTE | 2025-06-01 10:32 | MHC.PC.OV ---
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 Accompanied by: Self / Same As Patient Allergies cephalexin Allergy (Intermediate, Verified 06/01/25 11:25) rash alendronate sodium (From Fosamax) Adverse Reaction (Intermediate, Verified 06/01/25 11:25) DIARRHEA From Augmentin Allergy (Severe, Uncoded 06/01/25 11:25) FACE, LIPS SWELL Medication List - Last Reconciled 06/01/25 by Latonya Valdivia PA-C acetaminophen (Tylenol Extra Strength) 500 mg PO Q6H PRN aspirin (Adult Low Dose Aspirin) 81 mg PO DAILY atorvastatin 80 mg PO DAILY carvedilol 12.5 mg PO BID cholecalciferol (vitamin D3) (Vitamin D3) 50 mcg PO DAILY ferrous sulfate 325 mg PO DAILY fexofenadine-pseudoephedrine 60-120 mg ER (Bridgette-D 12 Hour) 1 tab PO BID gabapentin 300 mg PO BID ibandronate mg PO .once a month lisinopril 40 mg PO DAILY 3 months naproxen 500 mg PO BID nifedipine ER 30 mg PO DAILY omeprazole 20 mg PO DAILY oxybutynin chloride ER 10 mg PO DAILY Tobacco use date assessed: 04/14/25 Dental Screening Dental Screen Date: 03/07/25 HPI HPI Comments History of Present Illness Details History of Present Illness The patient is an 89 year old individual presenting for a blood pressure check and management of chronic conditions. The patient reports that blood pressure has been under control and is currently taking carvedilol 12.5 mg twice a day, lisinopril 40 mg, and nifedipine extended-release 30 mg. The patient reports ankle swelling for a couple of weeks, though it is not severe. The patient wears compression stockings, which are put on in the morning and removed at night, and notes the swelling is reduced by evening. There is no associated chest pain, shortness of breath, need for extra pillows to sleep, or calf pain. The patient mentions having issues with swelling since a past heart surgery. The patient also complains of generalized pruritus, which is described as an internal sensation without any external rash. The patient suspects it may be an allergic reaction to synthetic materials in clothing, such as elastic. Additionally, the patient has started experiencing hip pain, which is exacerbated by prolonged sitting. The patient finds relief by lying down for about 10 minutes. The patient has not had any recent falls and is not interested in surgery, x-rays, or physical therapy for this issue at this time. Past medical history is significant for heart surgery. The patient saw a gas and oil servicer in March, and an EKG at that time was reportedly normal. The patient denies any personal or family history of cancer. Social History - The patient is going to be 89 years old soon. - The patient lives with a sister who is almost 75 years old and assists the patient. - The patient is still able to drive. 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 - The patient is the youngest and only surviving sibling out of 11 [facility] Medical History (Updated 06/01/25 @ 11:29 by Latonya Valdivia PA-C) Healthcare maintenance Bilateral hip pain Pruritus Localized swelling of both lower legs Colonoscopy refused (~03/07/25) Osteoporosis (~05/18/20) History of mammogram (~06/18/21) Constipation Iron deficiency anemia Coronary artery disease Pure hypercholesterolemia, unspecified Vitamin D deficiency GERD (gastroesophageal reflux disease) Hypertension Primary osteoarthritis, left hand Social History Housing: House Alcohol intake: current Alcohol intake frequency: holidays/special occasions only Alcohol type: wine Patient Tobacco Use Status: Former Tobacco user service: No Current occupational status: retired Cognitive needs: Yes (cane sometimes) Hearing needs: No Vision needs: Yes (rx glasses) Questionnaire PHQ-9 Over the last 2 weeks, how often have you been bothered by any of the following problems? 1. Little interest or pleasure in doing things: not at all 2. Feeling down, depressed, or hopeless: not at all 3. Trouble falling or staying asleep, or sleeping too much: not at all 4. Feeling tired or having little energy: not at all 5. Poor appetite or overeating: not at all 6. Feeling bad about yourself - or that you are a failure or have let yourself or your family down: not at all 7. Trouble concentrating on things, such as reading the newspaper or watching television: not at all 8. Moving or speaking so slowly that other people could have noticed. Or the opposite - being so fidgety or restless that you have been moving around a lot more than usual: not at all 9. Thoughts that you would be better off or of hurting yourself in some way: not at all Total score: 0 Depression Screening Interpretation: Negative Depression Screening Done: Yes [id number] - PHQ-9 Billing: Yes Source: Developed by Drs. Scottie Orellana, Rosa Chapa, Dashawn Chilel and colleagues, with an educational benny from [employer]. Thrive Questionnaire Date Thrive assessed: 04/14/25 I am a: Patient What is your living situation today?: I have a steady place to live Within the past 12 months, did the food you bought not last and you didn't have the money to get more?: Never true Within the past 12 months, did you worry whether your food would run out before you got money to buy more?: Never true Do you have trouble paying for medicines?: No Do you have trouble getting transportation to medical appointments?: No Do you have trouble paying your heating and electricity bill?: No Do you have trouble taking care of your child, family member or friend?: No Do you have trouble with day-to-day activities such as bathing, preparing meals, shopping, managing finances, etc.?: No Are you currently unemployed and looking for a job?: No Are you interested in more education?: No Please select the resources that you would like help with: None THRIVE Score: 0 AUDIT C Alcohol Use Questionnaire (AUDIT-C) 1. How often do you have a drink containing alcohol?: Monthly or less 2. How many drinks containing alcohol do you have on a typical day when you are drinking?: 1 or 2 3. How often do you have six or more drinks on one occasion?: Never Total Score: 1 Score Reviewed/Action Taken: No ERICH-7 AMB Questionnaire ERICH-7 Date ERICH - 7 assessed: 04/14/25 Feeling nervous, anxious, or on edge: 0 = Not at all Not being able to stop or control worryin = Not at all Worrying too much about different things: 0 = Not at all Trouble relaxin = Not at all Being so restless that it is hard to sit still: 0 = Not at all Becoming easily annoyed or irritable: 0 = Not at all Feeling afraid as if something awful might happen: 0 = Not at all Total ERICH-7 score (0-4 normal; 5-9 mild; 10-14 moderate; 15-21 severe): 0 Source: Developed by Drs. Scottie Orellana, Rosa Chapa, Dashawn Chilel and colleagues, with an educational benny from [employer]. ERICH-7 Assessment Billing ERICH-7 Assessment Tool: ERICH-7 Assessment 82643 Review of Systems Narrative Review of Systems - Constitutional: Denies dizziness. - Cardiovascular: Denies chest pain. - Respiratory: Denies shortness of breath. - Integumentary: Reports generalized pruritus without a rash, suspecting an allergy to synthetics. - Musculoskeletal: Reports bilateral ankle swelling for a couple of weeks, which improves with compression stockings. - Reports hip pain that worsens with prolonged sitting. Denies calf pain. Const All systems reviewed & are unremarkable except as noted in HPI and below Physical exam (Primary Care) Vital Signs: Last Vital Signs Temp 97.6 F 06/01/25 10:35 Pulse 62 06/01/25 10:35 Resp 16 06/01/25 10:35 BP 143/65 H 06/01/25 10:35 Pulse Ox 99 06/01/25 10:35 Oxygen Delivery Method Room Air 06/01/25 10:35 Care Plan Goal for BP management: <140/90 at Goal patient to continue carvedilol 12.5 mg b.i.d., lisinopril 40 mg daily and nifedipine extended release 30 mg daily BMI result Body Mass Index 20.3 Normal BMI Tobacco/Smoking Status: Tobacco use Status Tobacco use date assessed 04/14/25 06/01/25 10:35 Patient Tobacco Use Status Former Tobacco user 06/01/25 10:35 PHQ-9: PHQ-9 Score PHQ-9: Total score 0 06/01/25 10:42 Depression Screening Interpretation: Negative Thrive Assessment: Date of Thrive Assessment Date Thrive assessed 04/14/25 06/01/25 10:35 Narrative Physical Exam Appearance: Alert. Oriented X3. No acute distress. Head: Normal external exam. Normocephalic. Atraumatic. Eyes: Pupils are equal, round, and reactive to light. Extraocular movements intact. Conjunctiva and sclera normal. Eyelids normal. Throat: Pharynx normal. Uvula midline. Moist mucous membranes. Neck: Normal inspection. Neck supple. Full range of motion. Cardiovascular: Normal heart rate and rhythm. Heart sound normal. No murmurs noted. Pulses normal throughout. Blood pressure recorded at 135/65. Respiratory: No respiratory distress. Painless inspiration. Breath sounds normal. No wheezes/rales/rhonchi noted. Chest nontender. No accessory muscle usage noted or decreased air movement noted. Back: Full range of motion noted. Skin: Skin warm and dry. Normal skin color. Normal skin turgor. No rashes/lesions/lacerations noted. Reports generalized itchiness without visible rash. Extremities: Mild lower extremity edema noted. Extremities exhibit normal range of motion. Neuro: Oriented X 3. No motor deficit. No sensory deficit. Reflexes normal. Results Reviewed Results Reviewed: Results - EKG: Performed in March by gas and oil servicer, who stated the patient's heart was fine. Coding Level of Care Code Est Pt Level 4 (30959) Complex visit Add On G2211 Diagnoses Hypertension I10 Localized swelling of both lower legs R22.43 Pruritus L29.9 Bilateral hip pain M25.551; M25.552 Healthcare maintenance Z00.00 Additional Codes ERICH-7 Assessment Billing - ERICH-7 Assessment Tool: ERICH-7 Assessment 26378 ([id number]) PHQ-9 - 35907 - PHQ-9 Billing: Yes ([id number]) Assessment & Plan Assessment & Plan (1) Hypertension: Code(s): I10 - Essential (primary) hypertension Category: Medical Plan: The patient's blood pressure is well-controlled with a reading of 137/60 mmHg in the office. The plan is to continue the current medication regimen, which includes carvedilol 12.5 mg twice a day, lisinopril 40 mg daily, and nifedipine ER 30 mg daily. (2) Localized swelling of both lower legs: Code(s): R22.43 - Localized swelling, mass and lump, lower limb, bilateral Category: Medical Plan: The patient presents with bilateral ankle swelling for a few weeks. To investigate the cause, a stat chest x-ray has been ordered to check for cardiomegaly and fluid retention, along with non-fasting blood work to assess for heart failure and evaluate kidney and liver function. The patient will continue using compression stockings to manage the swelling. (3) Pruritus: Code(s): L29.9 - Pruritus, unspecified Category: Medical Plan: The patient reports generalized itching without a rash, possibly due to a sensitivity to synthetic fabrics. A prescription for Bridgette has been sent to the pharmacy, with instructions to take it up to twice a day to alleviate symptoms. The patient declined a referral to an court worker. (4) Bilateral hip pain: Code(s): M25.551 - Pain in right hip; M25.552 - Pain in left hip Category: Medical Plan: The patient reports hip pain, likely due to arthritis, which worsens with prolonged sitting. The patient has declined further workup, including x-rays, physical therapy, or surgery at this time. The plan is to monitor the symptoms, and the patient has been advised to follow up if the pain worsens. (5) Healthcare maintenance: Code(s): Z00.00 - Encounter for general adult medical examination without abnormal findings Category: Medical Plan: The patient has agreed to a follow-up appointment in three months for ongoing management of chronic conditions, preferring this interval over six months. Guidance was provided on what to do in case of an emergency, including who to name as the primary care provider. The patient was advised to reschedule appointments if there is inclement weather making travel unsafe. Plan Plan Patient was informed and verbally consented to the use of an ambient scribe for clinic note documentation during this visit. 1. Essential (Primary) Hypertension The patient's blood pressure is well-controlled with a reading of 137/60 mmHg in the office. The plan is to continue the current medication regimen, which includes carvedilol 12.5 mg twice a day, lisinopril 40 mg daily, and nifedipine ER 30 mg daily. 2. Edema In Lower Limbs The patient presents with bilateral ankle swelling for a few weeks. To investigate the cause, a stat chest x-ray has been ordered to check for cardiomegaly and fluid retention, along with non-fasting blood work to assess for heart failure and evaluate kidney and liver function. The patient will continue using compression stockings to manage the swelling. 3. Pruritus The patient reports generalized itching without a rash, possibly due to a sensitivity to synthetic fabrics. A prescription for Bridgette has been sent to the pharmacy, with instructions to take it up to twice a day to alleviate symptoms. The patient declined a referral to an court worker. 4. Pain In Hip The patient reports hip pain, likely due to arthritis, which worsens with prolonged sitting. The patient has declined further workup, including x-rays, physical therapy, or surgery at this time. The plan is to monitor the symptoms, and the patient has been advised to follow up if the pain worsens. 5. Health Maintenance The patient has agreed to a follow-up appointment in three months for ongoing management of chronic conditions, preferring this interval over six months. Guidance was provided on what to do in case of an emergency, including who to name as the primary care provider. The patient was advised to reschedule appointments if there is inclement weather making travel unsafe. Discussion Notes I discussed with the patient that the blood pressure is well-controlled, and I advised continuing the current medications: carvedilol, lisinopril, and nifedipine. We reviewed the new ankle swelling, and I explained the plan to order a chest x-ray and blood work to rule out underlying causes such as heart failure, liver, or kidney issues. I clarified that the chest x-ray would look at the heart's structure, which is different from the previous EKG that assessed its electrical activity. Regarding the generalized itching, I prescribed Bridgette to be taken daily to see if it helps with what appears to be an allergic reaction. The patient declined a referral to an court worker. We also discussed the new hip pain, which is likely arthritic, and The patient declined any interventions like x-rays, physical therapy, or surgery at this time, preferring to monitor it. I provided the patient with our office card and confirmed that in an emergency, the patient can provide either my name or Dr. John's as the PCP. We agreed to a follow-up appointment in three months, as a six-month interval is too long given the patient's medications. Orders: Orders NT Pro B Type Natriuretic Pept Today R22.43 - Localized swelling, mass and lump, lower limb, bilateral XR chest 2V Today R22.43 - Localized swelling, mass and lump, lower limb, bilateral Comprehensive Met. Panel Today Z00.00 - Encounter for general adult medical examination without abnormal findings UA CC w/rflx Micro + Cult Today Z00.00 - Encounter for general adult medical examination without abnormal findings Medications: New fexofenadine-pseudoephedrine 60-120 mg ER (Bridgette-D 12 Hour) 1 tab PO BID 60 tabs 3RF Patient Instructions: Patient Instructions - Continue taking your blood pressure medications as prescribed: carvedilol 12.5 mg twice a day, lisinopril 40 mg once a day, and nifedipine ER 30 mg once a day. - Please go for a chest x-ray and blood work to check on your ankle swelling. You can go anytime, and you do not need an appointment or to fast (avoid eating). - For your body itching, I have sent a prescription for Bridgette, an allergy pill, to your pharmacy. You can take this up to twice a day to see if it provides relief. - Your hip pain is likely due to arthritis. Since you do not want x-rays or therapy now, monitor it at home and let us know if it gets worse. - In case of an emergency, please inform the hospital that I or Dr. John is your primary doctor. - Your next appointment is scheduled in three months. If there is bad weather, please call us to reschedule for your safety.
[2025-06-01 10:35] VITALS: BP 143/65; PULSE 62; RESP 16; TEMP 36.4; O2SAT 99; BMI 20.3
[2025-06-01 11:25] VITALS: BP 135/65
== END 2025-06-01 11:08 | disposition home or self-care (01) ==
LOC: HO.HMCSH 10:26
PROVIDERS: PCP Physician Assistant Medical; Visit Provider Physician Assistant Medical
DX: I10 Essential (primary) hypertension (principal); R22.43 Localized swelling, mass and lump, lower limb, bilateral; L29.9 Pruritus, unspecified; M25.551 Pain in right hip; M25.552 Pain in left hip; Z00.00 Encounter for general adult medical examination without abnormal findings

== ENCOUNTER 2025-06-02 08:02 | Outpatient (REF) | payer OTHER, SELFPAY ==
--- NOTE | ~2025-06-02 | XR_ITS ---
EXAMINATION: XR CHEST 2 VIEWS HISTORY: R22.43 - Localized swelling, mass and lump, lower limb, bilateral COMPARISON: Comparison is made with the prior examination dated 10/05/2022. FINDINGS: PA and lateral views of the chest are submitted. The lungs are expanded and clear. There is no pleural effusion, pneumothorax, or pulmonary vascular congestion. The heart is normal in size. The patient is status post median sternotomy and CABG. There is a small hiatal hernia. There is degenerative disc disease of the spine. XR/XR chest 2V IMPRESSION: Small hiatal hernia. No acute cardiopulmonary abnormality. Electronically signed by: Scottie Bruno MD 06/02/2025 08:59 AM EST
[2025-06-02 09:17] LABS: Alanine Aminotransferase 30 U/L (0-31); Albumin Level 3.7 g/dL (3.5-5.0); Alkaline Phosphatase 81 U/L (39-117); Anion Gap 11 (12-20); Aspartate Amino Transferase 34 U/L (5-31); Blood Urea Nitrogen 19 mg/dL (9-16); Calcium 8.6 mg/dL (8.4-10.2); Carbon Dioxide 22 mmol/L (22-29); Chloride 108 mmol/L (96-108); Estimated Glomerular Filt Rate > 60; Potassium 4.1 mmol/L (3.3-5.1); Sodium 137 mmol/L (135-145); Total Protein 5.7 g/dL (6.5-8.0)
[2025-06-02 09:26] LABS: NT Pro B Type Natriuretic Pept 427.4 pg/mL (<300)
[2025-06-02 11:49] LABS: Appearance Urine Clear; Glucose Urine UA Negative (Negative); PH 6.0 (5.0-9.0); Specific Gravity - Urine 1.010 (1.005-1.025); UMIC TRIGGER UACC YES
== END 2025-06-02 08:03 | disposition home or self-care (01) ==
LOC: HO.LAB 08:02
PROVIDERS: PCP Internal Medicine; Visit Provider Physician Assistant Medical
DX: Z00.00 Encounter for general adult medical examination without abnormal findings (principal); R22.43 Localized swelling, mass and lump, lower limb, bilateral
CPT/HCPCS: 36415; 71046; 80053; 81001; 83880